=== PATIENT | female | born 1940 | race Native Hawaiian/Other Pacific Islander ===

== ENCOUNTER 2018-06-25 08:08 | Emergency (ER) | payer MEDICARE, OTHER ==
[2018-06-25 08:32] VITALS: RESP 18; BMI 27.7
[2018-06-25] MEDS ORDERED: Sodium Chloride 0.9% 500 ML IV ONE ×2 (08:55→09:14)
--- NOTE | 2018-06-25 09:01 | C.PDOC ---
Time Seen by Provider: 06/25/18 08:32 Chief Complaint (Nursing): Abdominal Pain Past Medical History Vital Signs: Last Vital Signs Temp 98.2 F 06/25/18 08:20 Pulse 90 06/25/18 08:20 Resp 18 06/25/18 08:20 BP 179/73 H 06/25/18 08:20 Pulse Ox 98 06/25/18 08:20 - Medical History PMH: HTN, Hypercholesterolemia - Social History Hx Alcohol Use: No Hx Substance Use: No - Immunization History Hx Tetanus Toxoid Vaccination: No Hx Influenza Vaccination: Yes Hx Pneumococcal Vaccination: Yes ED Course And Treatment O2 Sat by Pulse Oximetry: 98 Disposition - Disposition
--- NOTE | 2018-06-25 09:02 | C.PDOC ---
History Of Present Illness 77 year old female presents to the ED complaining of abdominal pain for one week. Associated symptoms include urinary frequency, diarrhea, generalized weakness, coughing and chest pain. She denies any nausea, vomiting, dysuria, hematuria, melena, or any other symptoms. She reports she came back from the [facility] one week ago. Time Seen by Provider: 06/25/18 08:32 Chief Complaint (Nursing): Abdominal Pain History Per: Patient History/Exam Limitations: no limitations Onset/Duration Of Symptoms: Days Current Symptoms Are (Timing): Still Present Context: Travel Location Of Pain/Discomfort: Diffuse Radiation Of Pain To:: None Past Medical History Reviewed: Historical Data, Nursing Documentation, Vital Signs Vital Signs: Last Vital Signs Temp 98.0 F 06/25/18 10:49 Pulse 84 06/25/18 12:49 Resp 18 06/25/18 12:49 BP 134/72 06/25/18 12:49 Pulse Ox 99 06/25/18 12:49 - Medical History PMH: HTN, Hypercholesterolemia Surgical History: No Surg Hx Family History: States: No Known Family Hx - Social History Hx Alcohol Use: No Hx Substance Use: No - Immunization History Hx Tetanus Toxoid Vaccination: No Hx Influenza Vaccination: Yes Hx Pneumococcal Vaccination: Yes Review Of Systems Except As Marked, All Systems Reviewed And Found Negative. Constitutional: Positive for: Weakness. Negative for: Fever, Chills Cardiovascular: Positive for: Chest Pain Respiratory: Positive for: Cough. Negative for: Shortness of Breath Gastrointestinal: Positive for: Abdominal Pain, Diarrhea. Negative for: Nausea , Vomiting, Melena Genitourinary: Positive for: Frequency. Negative for: Dysuria, Hematuria Physical Exam - Physical Exam Appears: Non-toxic, No Acute Distress Skin: Warm, Dry Head: Atraumatic, Normacephalic Eye(s): bilateral: Normal Inspection Nose: Normal Oral Mucosa: Moist Neck: Supple Chest: Symmetrical Cardiovascular: Rhythm Regular, No Murmur Respiratory: Normal Breath Sounds, No Rales, No Wheezing Gastrointestinal/Abdominal: Soft, No Tenderness, No Guarding, No Rebound Extremity: Normal ROM Neurological/Psych: Oriented x3, Normal Speech Gait: Steady ED Course And Treatment - Laboratory Results Result Diagrams: 06/25/18 09:10 06/25/18 09:10 ECG: Interpreted By Me, Viewed By Me ECG Rhythm: Sinus Rhythm ECG Interpretation: No Acute Changes Interpretation Of ECG: Normal ST/T waves. Normal axis Rate From EC O2 Sat by Pulse Oximetry: 98 (RA) - Other Rad CXR X-Ray: Viewed By Me, Read By Radiologist Interpretation: Accession No. : [id number]. Patient Name / ID : EMMA PASCUAL / [id number]. Exam Date : 06/25/2018 09:01:50 ( Approved ). Study Comment : Sex / Age : F / 77Y. Creator : Redd Drummond MD. Dictator : Redd Drummond MD. Youth Specialist : Underliner : Redd Drummond MD. Approver2 : Report Date : 06/25/2018 10:42:21. My Comment : . Chest x- ray single frontal view. History: Epigastric. Comparison: None available. Findings. Biapical pleural thickening with upper lobe granulomatous changes. Venous congestion. Right hilar prominence. Left basilar airspace opacity with small left pleural effusion. Tortuous ectatic aorta. Calcification at the aortic knob. Degenerative changes in the spine and shoulders. Impression: Biapical pleural thickening with upper lobe granulomatous changes. Venous congestion. Right hilar prominence. Left basilar airspace opacity with small left pleural effusion. Tortuous ectatic aorta. Calcification at the aortic knob. - CT Scan/US CT Abd/Pel Other Rad Studies (CT/US): Read By Radiologist, Radiology Report Reviewed CT/US Interpretation: Accession No. : [id number]. Patient Name / ID : EMMA PASCUAL / [id number]. Exam Date : 06/25/2018 10:35:37 ( Approved ). Study Comment : Sex / Age : F / 77Y. Creator : Umm Ortega. Dictator : Greg Sahni MD. Youth Specialist : Underliner : Greg Sahni MD. Approver2 : Report Date : 06/25/2018 10:49:57. My Comment : . Date of service: 06/25/2018. PROCEDURE: CT Abdomen and Pelvis with contrast. HISTORY : epigastric/mid abd pain, diarrhea, r/o colitis. COMPARISON: None. TECHNIQUE: Contrast dose: 100 mL Visipaque 320. Axial and reformatted coronal and sagittal CT images of the abdomen and pelvis were obtained after IV contrast administration. Radiation dose: Total exam DLP = 392.35 mGy-cm. This CT exam was performed using one or more of the following dose reduction techniques: Automated exposure control, adjustment of the mA and/or kV according to patient size, and/or use of iterative reconstruction technique. FINDINGS: LOWER THORAX: UnremarkableSmall ground-glass opacities noted at the lower lungs nonspecific. Small cystic formation noted at the anterior aspect of the right middle lobe. The heart is mildly enlarged. . LIVER: Unremarkable. No gross lesion or ductal dilatation. GALLBLADDER AND BILE DUCTS: Unremarkable. PANCREAS: Unremarkable. No gross lesion or ductal dilatation. SPLEEN: Unremarkable. ADRENALS: Unremarkable. No mass. KIDNEYS AND URETERS: Unremarkable. No hydronephrosis. No solid mass. VASCULATURE: Unremarkable. No aortic aneurysm. BOWEL: Mildly dilated small bowel loops demonstrate mild wall thickening. Mild large bowel wall thickening is also noted. Findings suspicious for enteritis and colitis. No evidence of bowel obstruction. APPENDIX: No evidence of appendicitis. PERITONEUM: Unremarkable. No free fluid. No free air. LYMPH NODES: There are [id number] enlarged periaortic and retroperitoneal lymphadenopathy. The largest conglomerate lymphadenopathy seen to the left of the aorta measures 3.1 centimeter image 41 series 2. BLADDER: Slightly low position of the bladder is noted suggestive of mild cystocele. REPRODUCTIVE: The uterus and adnexa are unremarkable. There is a pessary in the lower pelvis. BONES: No acute fracture. OTHER FINDINGS: None. IMPRESSION: Findings suggestive of mild enteritis and colitis. No evidence of bowel obstruction or pneumatosis. No evidence of cholecystitis pancreatitis or appendicitis. Etjx-le-xbnjzhdo retroperitoneal and para-aortic lymphadenopathy of uncertain etiology. The possibility of occult neoplasm is not totally excluded. Medical Decision Making Medical Decision Making: Orders: - EKG - Lab work - Blood work - Protonix 40mg IVP - Zofran 4mg IVP - IV fluids On re-exam, the patient reports improvement of symptoms. Abdomen is soft, non- tender and tolerating PO well. Lungs are CTA, and heart is RRR. Follow up with the medical doctor within 1-2 days. return if worsened. Disposition - Disposition Referrals: Tonie Llamas MD [Staff Provider] - Disposition: HOME/ ROUTINE Disposition Time: 12:38 Condition: IMPROVED Additional Instructions: Follow up with the medica doctor/clinic within 1-2 days. Return if worsened. Instructions: Diarrhea and Traveler's Diarrhea, Adult (DC) Forms: [employer] (Luxembourgish) - Clinical Impression Clinical Impression: Colitis, Diarrhea - PA / LABORER/KEY MAN / Resident Statement MD/DO has reviewed & agrees with the documentation as recorded. - Scribe Statement The provider has reviewed the documentation as recorded by the Scribe Irasema Paul All medical record entries made by the Patrickibjuve were at my direction and personally dictated by me. I have reviewed the chart and agree that the record accurately reflects my personal performance of the history, physical exam, medical decision making, and the department course for this patient. I have also personally directed, reviewed, and agree with the discharge instructions and disposition.
[2018-06-25 09:16] LABS: BASO % 0.3 % (0.0-2.0); EOS # 0.1 K/uL (0.0-0.7); HEMOGLOBIN 13.9 g/dL (11.0-16.0); LYMPH # 2.2 K/uL (1.0-4.3); LYMPH % 21.5 % (20.0-40.0); MEAN CELL VOLUME 94.3 fL (81.0-99.0); MEAN CORPUSCULAR HEMOGLOBIN 32.1 pg (27.0-31.0); MEAN PLATELET VOLUME 6.6 fL (7.2-11.7); MONO # 1.1 K/uL (0.0-0.8); MONO % 10.5 % (0.0-10.0); NEUT # 6.9 K/uL (1.8-7.0); NEUT % 66.7 % (50.0-75.0); RBC 4.33 Mil/uL (3.80-5.20); RED CELL DISTRIBUTION WIDTH 13.8 % (11.5-14.5); WHITE BLOOD COUNT 10.4 K/uL (4.8-10.8)
[2018-06-25 09:26] LABS: ALB/GLOB RATIO 1.6 (1.0-2.1); ALBUMIN 4.3 g/dL (3.5-5.0); ALT/SGPT 52 U/L (9-52); AST/SGOT 21 U/L (14-36); BLOOD UREA NITROGEN 9 mg/dL (7-17); CALCIUM 8.6 mg/dl (8.6-10.4); GFR AFRICAN-AMERICAN > 60; GFR NON-AFRICAN AMERICAN > 60; LIPASE 104 U/L (23-300)
[2018-06-25] MEDS ORDERED: Iodixanol 320 MG/ML 100 ML BOTTLE IV ONE (10:22)
--- NOTE | 2018-06-25 10:43 | RAD ---
Chest x-ray single frontal view History: Epigastric. Comparison: None available. Findings Biapical pleural thickening with upper lobe granulomatous changes. Venous congestion. Right hilar prominence. Left basilar airspace opacity with small left pleural effusion. Tortuous ectatic aorta. Calcification at the aortic knob. Degenerative changes in the spine and shoulders. Impression: Biapical pleural thickening with upper lobe granulomatous changes. Venous congestion. Right hilar prominence. Left basilar airspace opacity with small left pleural effusion. Tortuous ectatic aorta. Calcification at the aortic knob.
[2018-06-25 10:50] VITALS: TEMP 98
--- NOTE | 2018-06-25 11:29 | CT ---
Date of service: 06/25/2018 PROCEDURE: CT Abdomen and Pelvis with contrast HISTORY: epigastric/mid abd pain, diarrhea, r/o colitis COMPARISON: None. TECHNIQUE: Contrast dose: 100 mL Visipaque 320. Axial and reformatted coronal and sagittal CT images of the abdomen and pelvis were obtained after IV contrast administration. Radiation dose: Total exam DLP = 392.35 mGy-cm. This CT exam was performed using one or more of the following dose reduction techniques: Automated exposure control, adjustment of the mA and/or kV according to patient size, and/or use of iterative reconstruction technique. FINDINGS: LOWER THORAX: UnremarkableSmall ground-glass opacities noted at the lower lungs nonspecific. Small cystic formation noted at the anterior aspect of the right middle lobe. The heart is mildly enlarged. . LIVER: Unremarkable. No gross lesion or ductal dilatation. GALLBLADDER AND BILE DUCTS: Unremarkable. PANCREAS: Unremarkable. No gross lesion or ductal dilatation. SPLEEN: Unremarkable. ADRENALS: Unremarkable. No mass. KIDNEYS AND URETERS: Unremarkable. No hydronephrosis. No solid mass. VASCULATURE: Unremarkable. No aortic aneurysm. BOWEL: Mildly dilated small bowel loops demonstrate mild wall thickening. Mild large bowel wall thickening is also noted. Findings suspicious for enteritis and colitis. No evidence of bowel obstruction. APPENDIX: No evidence of appendicitis. PERITONEUM: Unremarkable. No free fluid. No free air. LYMPH NODES: There are zjtnqx-tl-avtfbukcvw enlarged periaortic and retroperitoneal lymphadenopathy. The largest conglomerate lymphadenopathy seen to the left of the aorta measures 3.1 centimeter image 41 series 2. BLADDER: Slightly low position of the bladder is noted suggestive of mild cystocele. REPRODUCTIVE: The uterus and adnexa are unremarkable. There is a pessary in the lower pelvis. BONES: No acute fracture. OTHER FINDINGS: None. IMPRESSION: Findings suggestive of mild enteritis and colitis. No evidence of bowel obstruction or pneumatosis. No evidence of cholecystitis pancreatitis or appendicitis. Brng-ur-afnjbkdm retroperitoneal and para-aortic lymphadenopathy of uncertain etiology. The possibility of occult neoplasm is not totally excluded.
[2018-06-25 12:50] VITALS: BP 134/72; PULSE 84
--- NOTE | 2018-06-26 12:43 | CARD ---
APPROVED REPORT Date of service: 06/25/2018 EKG Measurement Heart [id number] <Conclusion> Normal sinus rhythm Normal ECG
[2018-06-28 21:39] VITALS: O2SAT 98
== END 2018-06-25 12:50 | disposition home or self-care (01) ==
LOC: C.ER 08:08
DX: K52.9 Noninfective gastroenteritis and colitis, unspecified (principal); R19.7 Diarrhea, unspecified; E78.00 Pure hypercholesterolemia, unspecified; I10 Essential (primary) hypertension
CPT/HCPCS: 71045; 74177; 80053; 82948; 83690; 84484; 85025; 93005; 96374; 96375; 99284; C9113; J2405; J7040; Q9967

== ENCOUNTER 2018-07-02 06:54 | Day surgery (SDC) | payer MEDICARE, OTHER ==
[2018-06-28 11:20] VITALS: BMI 26.9
[2018-07-02] MEDS ORDERED: Propofol 10 mg/ml Inj (20 ML) ONE (08:00)
--- NOTE | 2018-07-02 08:03 | CP.SDSHP ---
Same Day Surgery H & P - History Proposed Procedure: EGD Pre-Op Diagnosis: epigastric pain. heartburn - Previous Medical/Surgical History Cardiac: Hypertension, Other (hyperlipidemia) Endocrine/Metabolic: Diabetes Previous Surgical History: Bladder suspension/pessary(?). Cataracts, bilat. Eye lift - Allergies Allergies: Allergies No Known Allergies Allergy (Verified 07/02/18 07:37) - Physical Exam Vital Signs: Vital Signs 07/02/18 07:10 Temperature 97.8 F Pulse Rate 73 Respiratory 19 Rate Blood Pressure 144/58 L O2 Sat by Pulse 99 Oximetry Mental Status: Alert & Oriented x3 Neuro: WNL Heart: WNL Lungs: WNL GI: WNL - Impression Impression: epigastric pain'. heartburn Pt. Evaluated Today:Candidate for Anesthesia & Procedure: Yes - Date & Time Date: 07/02/18 Time: 08:03 Short Stay Discharge - Short Stay Discharge Admitting Diagnosis/Reason for Visit: EPIGASTRIC PAIN / HEARTBURN Disposition: HOME/ ROUTINE
[2018-07-02] MEDS ORDERED: Pantoprazole 40 mg EC Tab PO ONE (08:15)
[2018-07-02 08:29] VITALS: TEMP 98.4
[2018-07-02 09:18] VITALS: RESP 12; O2SAT 99
[2018-07-02 09:21] VITALS: BP 129/64; PULSE 89
== END 2018-07-02 09:20 | disposition home or self-care (01) ==
LOC: C.ENDO 06:54
PROVIDERS: ATTEND Internal Medicine Gastroenterology
DX: K21.0 Gastro-esophageal reflux disease with esophagitis (principal); K44.9 Diaphragmatic hernia without obstruction or gangrene; K29.60 Other gastritis without bleeding
CPT/HCPCS: 43239; 82948; 88305; 88312; 88313; 88342; J2001; J2704

== ENCOUNTER 2018-08-25 14:59 | Emergency (ER) | payer MEDICARE, OTHER ==
[2018-08-25 15:04] VITALS: BMI 27.7
[2018-08-25 15:08] VITALS: BP 158/80; PULSE 89; RESP 20; TEMP 99.3; O2SAT 98
--- NOTE | 2018-08-25 15:48 | C.PDOC ---
Time Seen by Provider: 08/25/18 15:35 Chief Complaint (Nursing): Female Genitourinary PMH - Medical History PMH: HEENT Problems, GI Disorders, MS Disorders Denies: Neuro Disorder, Resp Disorders - Immunization History Hx Tetanus Toxoid Vaccination: No Hx Influenza Vaccination: Yes Hx Pneumococcal Vaccination: Yes ED Course And Treatment O2 Sat by Pulse Oximetry: 98 Disposition - Disposition
--- NOTE | 2018-08-25 16:10 | C.PDOC ---
History Of Present Illness 78 years old female presents to ED with multiple complaints. Patient complaints of vaginal discharge associated with bad odor that began 1 week ago. Patient reports she has Pessary and is pending MD evaluation for 09/13 "To get it cleaned out" but states she cannot wait until then. Denies itchiness, rash, or UTI symptoms. Patient also complaints of exacerbating chronic right greater than left hip and bilateral knee pain "for a long time." Patient reports symptoms worsen with walking but now states limited relief with Tylenol. She also reports she was previously diagnosed with arthritis. Denies trauma. MULT COMPLAINTS. CO VAG DC W BAD ODOR X 1 WEEK. PS HAS PESSARY, PENDING MD EVAL 09/13 "TO GET IT CLEANED OUT" BUT STATES CANNOT WAIT UNTIL THEN. NO ITCH, RASH, UTI SX. ALSO CO EXAC CHRONIC R>L HIP, B/L KNEE PAIN "FOR A LONG TIME". WORSE W WALKING, PREV DX ARTHRITIS. NOW LIMITED RELIEF W TYLNOL. NO TRAUMA. EXAM NONTOX NAD EXT AROM WO DIFF NONTEND NO SWELL; ATRAUM DEFERRED REMAINDER NEG Time Seen by Provider: 08/25/18 15:35 Chief Complaint (Nursing): Female Genitourinary History Per: Patient History/Exam Limitations: no limitations Onset/Duration Of Symptoms: Days (7) Current Symptoms Are (Timing): Still Present Recent travel outside of the [place]: No Past Medical History Reviewed: Historical Data, Nursing Documentation, Vital Signs Vital Signs: Last Vital Signs Temp 99.3 F 08/25/18 15:05 Pulse 89 08/25/18 15:05 Resp 20 08/25/18 15:05 BP 158/80 H 08/25/18 15:05 Pulse Ox 98 08/25/18 15:05 - Medical History PMH: Arthritis, HTN, Hypercholesterolemia, Osteoporosis Surgical History: Endoscopy Family History: States: No Known Family Hx - Social History Hx Alcohol Use: No Hx Substance Use: No - Immunization History Hx Tetanus Toxoid Vaccination: No Hx Influenza Vaccination: Yes Hx Pneumococcal Vaccination: Yes Review Of Systems Except As Marked, All Systems Reviewed And Found Negative. Genitourinary: Positive for: Vaginal Discharge (With bad odor ) Musculoskeletal: Positive for: Other (Chronic right greater than left hip pain and bilateral knee pain ) Physical Exam - Physical Exam Appears: Non-toxic, No Acute Distress Skin: Normal Color, Warm, Dry, No Rash Head: Atraumatic, Normacephalic Eye(s): bilateral: Normal Inspection, PERRL, EOMI Oral Mucosa: Moist Neck: Supple Chest: Symmetrical, No Tenderness Cardiovascular: Rhythm Regular, No Murmur Respiratory: Normal Breath Sounds, No Rales, No Rhonchi, No Wheezing Gastrointestinal/Abdominal: Bowel Sounds (Active ), Soft, No Tenderness Pelvic: Other ( DEFERRED) Extremity: Normal ROM (Active with no difficulties ), No Tenderness, No Swelling Extremity: Bilateral: Atraumatic, Normal Color And Temperature, Normal ROM Pulses: Left Radial: Normal, Right Radial: Normal Neurological/Psych: Oriented x3, Normal Speech Gait: Steady ED Course And Treatment O2 Sat by Pulse Oximetry: 98 (RA) Pulse Ox Interpretation: Normal Medical Decision Making Medical Decision Making: Plan: * Toradol * UA * Urine Culture Disposition Counseled Patient/Family Regarding: Diagnosis, Need For Followup, Rx Given - Disposition Referrals: YOUR,UROLOGIST/OBGYN [Other] Disposition: HOME/ ROUTINE Disposition Time: 16:10 Condition: IMPROVED Prescriptions: Ibuprofen [Motrin] 400 mg PO QID #30 tab Metronidazole [Metrogel-Vaginal] 1 ea VG QPM #5 gel Instructions: Bacterial Vaginosis (DC), Osteoarthritis (DC) Forms: [employer] (Macedonian) - Clinical Impression Clinical Impression: Vaginosis, Chronic arthralgias of knees and hips - Scribe Statement The provider has reviewed the documentation as recorded by the Scribjuve Junior All medical record entries made by the Scribe were at my direction and personally dictated by me. I have reviewed the chart and agree that the record accurately reflects my personal performance of the history, physical exam, medical decision making, and the department course for this patient. I have also personally directed, reviewed, and agree with the discharge instructions and disposition.
[2018-08-25 16:37] LABS: SQUAMOUS EPITHIAL 11 /hpf (0-5); URINE BACTERIA MANY (<OCC); URINE BILIRUBIN NEGATIVE (NEGATIVE); URINE BLOOD 1+ (NEGATIVE); URINE CLARITY Hazy (Clear); URINE COLOR Yellow (YELLOW); URINE GLUCOSE (UA) NORMAL (Normal); URINE LEUKOCYTE ESTERASE 3+ Leu/uL (Negative); URINE PROTEIN NEGATIVE (NEGATIVE); URINE UROBILINOGEN NORMAL mg/dL (0.2-1.0)
== END 2018-08-25 17:31 | disposition home or self-care (01) ==
LOC: C.ER 14:59
DX: N76.0 Acute vaginitis (principal); G89.29 Other chronic pain; M25.562 Pain in left knee; M25.561 Pain in right knee; M25.551 Pain in right hip
CPT/HCPCS: 81001; 87086; 96372; 99284; J1885

== ENCOUNTER 2018-09-25 18:30 | Inpatient (IN) | payer MEDICARE, OTHER ==
[2018-09-25 18:31] VITALS: BMI 27.7
--- NOTE | 2018-09-25 19:29 | C.PDOC ---
History Of Present Illness 78 year old female is sent to the ED from her PMD's office. Patient c/o lower back pain for the past few months, that has been getting progressively worse. Patient states pain radiated down her hip to her legs. Patient has a retroper itoneal lymphadenopathy that she has been getting monitored. Patient state she had a CT scan done yesterday with no results back yet. Patient went to see Dr. Llamas, had blood work done which showed her calcium was 12.9. Patient was sent to the ED for admission under Dr. Jimenez Hensley service. Patient denies fever, chills, nausea, vomit, abdominal pain, bowel incontinence, saddle anesthesia, injury, fall, trauma, weakness, numbness. Time Seen by Provider: 09/25/18 18:57 Chief Complaint (Nursing): Abnormal Labs History Per: Patient History/Exam Limitations: no limitations Onset/Duration Of Symptoms: Days Current Symptoms Are (Timing): Still Present Severity: Mild Reports Recently: Treated By A Physician (Dr. Llamas) Recent travel outside of the [place]: No Additional History Per: Patient Past Medical History Reviewed: Historical Data, Nursing Documentation, Vital Signs Vital Signs: Last Vital Signs Temp 97.8 F 09/25/18 18:42 Pulse 100 H 09/25/18 18:42 Resp 18 09/25/18 18:42 BP 151/75 H 09/25/18 18:42 Pulse Ox 96 09/25/18 18:42 - Medical History PMH: Arthritis, HTN, Hypercholesterolemia, Osteoporosis Denies: Chronic Kidney Disease Surgical History: Endoscopy Family History: States: Unknown Family Hx - Social History Hx Alcohol Use: No Hx Substance Use: No - Immunization History Hx Tetanus Toxoid Vaccination: No Hx Influenza Vaccination: Yes Hx Pneumococcal Vaccination: Yes Review Of Systems Constitutional: Negative for: Fever, Chills Cardiovascular: Negative for: Chest Pain Respiratory: Negative for: Shortness of Breath Gastrointestinal: Negative for: Nausea, Vomiting, Abdominal Pain, Diarrhea Genitourinary: Negative for: Incontinence Musculoskeletal: Positive for: Back Pain, Leg Pain Skin: Negative for: Rash Neurological: Negative for: Weakness, Numbness Physical Exam - Physical Exam Appears: Non-toxic, No Acute Distress Skin: Normal Color, Warm, Dry Head: Atraumatic, Normacephalic Eye(s): bilateral: Normal Inspection Neck: Normal ROM, Supple Chest: Symmetrical Cardiovascular: Rhythm Regular (tachycardic) Respiratory: Normal Breath Sounds, No Rales, No Rhonchi, No Wheezing Gastrointestinal/Abdominal: Soft, No Tenderness, No Guarding, No Rebound Back: No Vertebral Tenderness Extremity: Normal ROM, No Tenderness, No Swelling Neurological/Psych: Oriented x3, Normal Speech, Normal Cognition Gait: Steady ED Course And Treatment - Laboratory Results Result Diagrams: 09/25/18 19:39 09/25/18 19:39 Lab Interpretation: Abnormal (Ca 10.8,) ECG: Interpreted By Me ECG Rhythm: Sinus Rhythm (with inferior infarct ? age) ECG Interpretation: No Acute Changes O2 Sat by Pulse Oximetry: 96 (ON RA) Pulse Ox Interpretation: Normal - Physician Consult Information Time Consulting Physician Contacted: 20:56 Outcome Of Conversation: Case discussed with Dr Hensley and Dr Fisher. Patient to be admitted for evaluation of hypercalcemia in pt with retroperitoneal lymphadenopathy Medical Decision Making Medical Decision Making: Plan: * EKG * Labs * UA Disposition - Disposition Disposition: HOSPITALIZED Disposition Time: 20:57 Condition: STABLE - POA Present On Arrival: None - Clinical Impression Clinical Impression: Hypercalcemia, Retroperitoneal lymphadenopathy - Scribe Statement The provider has reviewed the documentation as recorded by the Scribe Prosper Mireles All medical record entries made by the Scribe were at my direction and personally dictated by me. I have reviewed the chart and agree that the record accurately reflects my personal performance of the history, physical exam, medical decision making, and the department course for this patient. I have also personally directed, reviewed, and agree with the discharge instructions and disposition.
[2018-09-25 19:46] LABS: BASO % 0.3 % (0.0-2.0); EOS # 0.1 K/uL (0.0-0.7); EOS % 0.7 % (0.0-4.0); HEMOGLOBIN 11.2 g/dL (11.0-16.0); LYMPH # 1.4 K/uL (1.0-4.3); MEAN CELL VOLUME 89.6 fL (81.0-99.0); MEAN CORPUSCULAR HEMOGLOBIN 30.1 pg (27.0-31.0); MEAN CORPUSCULAR HGB CONC 33.6 g/dL (33.0-37.0); MEAN PLATELET VOLUME 6.4 fL (7.2-11.7); MONO # 0.9 K/uL (0.0-0.8); MONO % 11.7 % (0.0-10.0); NEUT # 5.5 K/uL (1.8-7.0); NEUT % 69.3 % (50.0-75.0); NRBC % 0.1 % (0.0-2.0); RBC 3.72 Mil/uL (3.80-5.20); RED CELL DISTRIBUTION WIDTH 14.2 % (11.5-14.5); WHITE BLOOD COUNT 7.9 K/uL (4.8-10.8)
[2018-09-25 19:51] LABS: SQUAMOUS EPITHIAL 1 /hpf (0-5); URINE BACTERIA OCC (<OCC); URINE BILIRUBIN NEGATIVE (NEGATIVE); URINE BLOOD NEGATIVE (NEGATIVE); URINE CLARITY Clear (Clear); URINE COLOR Yellow (YELLOW); URINE GLUCOSE (UA) 1+ mg/dL (Normal); URINE LEUKOCYTE ESTERASE 1+ Leu/uL (Negative); URINE PROTEIN NEGATIVE (NEGATIVE); URINE UROBILINOGEN NORMAL mg/dL (0.2-1.0)
[2018-09-25 20:14] LABS: ALB/GLOB RATIO 1.1 (1.0-2.1); ALBUMIN 4.2 g/dL (3.5-5.0); ALT/SGPT 23 U/L (9-52); AST/SGOT 73 U/L (14-36); BLOOD UREA NITROGEN 17 mg/dL (7-17); CALCIUM 10.8 mg/dl (8.6-10.4); GFR NON-AFRICAN AMERICAN > 60
[2018-09-25] MEDS: Oxycodone/Acetaminophen 5/325 mg Tab PO PRN (21:33)
[2018-09-25] MEDS: Lactated Ringer's 1,000 ML IV SCH (21:33)
[2018-09-25] MEDS ORDERED: Oxycodone/Acetaminophen 5/325 mg Tab ONE (21:33)
[2018-09-25] MEDS ORDERED: (Novolin R) Insulin Human Regular 100 units/ml vial SC SCH (22:00)
[2018-09-25] MEDS ORDERED: INSULIN DETEMIR 50 UNIT SC SCH (22:00)
[2018-09-25 22:20] VITALS: RESP 20
[2018-09-25] MEDS: (Novolin R) Insulin Human Regular 100 units/ml vial SC SCH (22:28)
[2018-09-26] MEDS: Oxycodone/Acetaminophen 5/325 mg Tab PO PRN ×3 (04:07→16:20)
[2018-09-26] MEDS: Lactated Ringer's 1,000 ML IV SCH ×2 (07:15→21:43)
[2018-09-26] MEDS: (Novolin R) Insulin Human Regular 100 units/ml vial SC SCH ×4 (08:23→21:43)
[2018-09-26] MEDS: Multiple Vitamins Tab PO SCH (10:42)
[2018-09-26] MEDS: Enoxaparin 30 mg Syringe SC SCH (10:42)
--- NOTE | 2018-09-26 12:41 | CP.PCM.CON ---
<Nabor Olson - Last Filed: 09/26/18 22:18> History of Present Illness - History of Present Illness History of Present Illness: Nephrology consult note for Dr. Singh's service - Ivette Olson PGY3 HPI: Patient is a 78yo female with past medical history of diabetes mellitus type 2, hypertension, hyperlipidemia, arthritis that presents c/o low back pain and hip pain since March 2018 that has been progressively worsening over the last several months. She reports that the pain is predominantly in the R. Hip area and has made it more difficult to perform ADL's and she has been taking tramadol for pain relief. She also reported having had an elevated serum calcium level which per chart was documented as 12.9 as an outpatient. Furthermore, she also endorsed having had a CT abdomen/pelvis which was notable for retropertioneal and para-aortic lymphadenopathy for which she has been monitored by her PMD. Presently, she denies chest pain, palpitations, SOB, abdominal pain, nausea, vomiting, fever, chills, cough, focal weakness, numbness, tingling. Nephrology consulted for evaluation of hypercalcemia. 12point ROS as per above otherwise negative PMH: as stated above PSH: pessary placement, eye lift Allergies: NKDA Social Hx: denies tobacco, alcohol and illicit drug use Family Hx: reviewed, non-contributory Past Patient History - Infectious Disease Hx of Infectious Diseases: None - Past Medical History & Family History Past Medical History?: Yes - Past Social History Smoking Status: Never Smoked - CARDIAC Hx Hypercholesterolemia: Yes Hx Hypertension: Yes - PULMONARY Hx Respiratory Disorders: No - NEUROLOGICAL Hx Neurological Disorder: No - HEENT Hx HEENT Problems: Yes Hx Cataracts: Yes (BILATERAL CATARACT SURGERY) Hx Deafness: (ZUNI ( bilateral)) - RENAL Hx Chronic Kidney Disease: No - ENDOCRINE/METABOLIC Hx Endocrine Disorders: Yes Hx Diabetes Mellitus Type 2: Yes - HEMATOLOGICAL/ONCOLOGICAL Hx Blood Disorders: No - INTEGUMENTARY Hx Dermatological Problems: No - MUSCULOSKELETAL/RHEUMATOLOGICAL Hx Falls: No - GASTROINTESTINAL Hx Gastrointestinal Disorders: Yes Other/Comment: HEARTBURN, EPIGASTRIC PAIN - GENITOURINARY/GYNECOLOGICAL Hx Genitourinary Disorders: No - PSYCHIATRIC Hx Substance Use: No - SURGICAL HISTORY Hx Surgeries: Yes Hx Cataract Extraction: Yes (BILATERAL) Hx Eye Surgery: Yes (BILATERAL EYELIDS) - ANESTHESIA Hx Anesthesia: Yes Hx Anesthesia Reactions: No Hx Malignant Hyperthermia: No Meds Allergies/Adverse Reactions: Allergies Allergy/AdvReac Type Severity Reaction Status Date / Time No Known Allergies Allergy Verified 08/25/18 15:03 - Medications Medications: Current Medications Diltiazem HCl (Cardizem Cd) 120 mg PO DAILY [facility] Enoxaparin Sodium (Lovenox) 40 mg SC DAILY [facility] Last Admin: 09/26/18 10:42 Dose: 40 mg Famotidine (Pepcid) 20 mg PO BID [facility] Last Admin: 09/26/18 12:07 Dose: 20 mg Home Med (Insulin Detemir [Levemir]) 50 units SC [facility] Last Admin: 09/25/18 22:34 Dose: Not Given Lactated Ringer's (Lactated Ringer's) 1,000 mls @ 100 mls/hr IV .Q10H [facility] Last Admin: 09/26/18 07:15 Dose: 100 mls/hr Insulin Human Regular (Novolin R) 0 unit SC [facility]; Protocol Last Admin: 09/26/18 12:13 Dose: 3 units Lisinopril (Zestril) 40 mg PO DAILY [facility] Last Admin: 09/26/18 10:42 Dose: 40 mg Metformin HCl (Glucophage) 500 mg PO BID [facility] Last Admin: 09/26/18 10:42 Dose: 500 mg Multivitamins (Hexavitamin) 1 tab PO DAILY [facility] Last Admin: 09/26/18 10:42 Dose: 1 tab Oxycodone/Acetaminophen (Percocet 5/325 Mg Tab) 1 tab PO Q4H PRN PRN Reason: Pain, moderate (4-7) Stop: 09/28/18 21:10 Last Admin: 09/26/18 12:00 Dose: 1 tab Pneumococcal Polyvalent Vaccine (Pneumovax 23 Vaccine) 0.5 ml IM .ONCE ONE Stop: 09/28/18 10:01 Rosuvastatin Calcium (Crestor) 40 mg PO [facility] Last Admin: 09/25/18 22:23 Dose: 40 mg Physical Exam - Constitutional Appears: No Acute Distress - Head Exam Head Exam: ATRAUMATIC, NORMAL INSPECTION, NORMOCEPHALIC - Eye Exam Eye Exam: EOMI Pupil Exam: PERRL - ENT Exam ENT Exam: Mucous Membranes Moist - Neck Exam Neck exam: Negative for: Lymphadenopathy, Tenderness, Thyromegaly - Respiratory Exam Respiratory Exam: absent: Rales, Rhonchi, Wheezes - Cardiovascular Exam Cardiovascular Exam: +S1, +S2. absent: Clicks, Gallop, Rubs - GI/Abdominal Exam GI & Abdominal Exam: Soft. absent: Distended, Firm, Guarding, Rebound, Rigid, Tenderness - Extremities Exam Extremities exam: Positive for: normal inspection. Negative for: calf tenderness, pedal edema - Neurological Exam Neurological exam: Alert, CN II-XII Intact, Oriented x3 - Psychiatric Exam Psychiatric exam: Normal Affect, Normal Mood - Skin Skin Exam: Dry, Intact, Normal Color, Warm Results - Vital Signs Recent Vital Signs: Last Vital Signs Temp 101.3 F H 09/26/18 12:10 Pulse 105 H 09/26/18 08:15 Resp 20 09/26/18 08:15 BP 167/61 H 09/26/18 08:15 Pulse Ox 98 09/26/18 08:15 - Labs Result Diagrams: 09/25/18 19:39 09/25/18 19:39 Labs: Laboratory Results - last 24 hr 09/25/18 09/25/18 09/25/18 19:39 19:39 19:39 WBC 7.9 RBC 3.72 L Hgb 11.2 D Hct 33.3 L MCV 89.6 D MCH 30.1 MCHC 33.6 RDW 14.2 Plt Count 466 H MPV 6.4 L Neut % (Auto) 69.3 Lymph % (Auto) 18.0 L Snyder % (Auto) 11.7 H Eos % (Auto) 0.7 Baso % (Auto) 0.3 Neut # (Auto) 5.5 Lymph # (Auto) 1.4 Snyder # (Auto) 0.9 H Eos # (Auto) 0.1 Baso # (Auto) 0.0 Sodium 135 Potassium 4.3 Chloride 97 L Carbon Dioxide 28 Anion Gap 14 BUN 17 Creatinine 0.9 Est GFR ( Amer) > 60 Est GFR (Non-Af Amer) > 60 POC Glucose (mg/dL) Random Glucose 148 H Calcium 10.8 H Phosphorus 4.0 Magnesium 2.1 Total Bilirubin 0.5 AST 73 H D ALT 23 Alkaline Phosphatase 144 H D Total Protein 7.9 Albumin 4.2 Globulin 3.7 Albumin/Globulin Ratio 1.1 Urine Color Yellow Urine Clarity Clear Urine pH 7.0 Ur Specific [place] 1.008 Urine Protein Negative Urine Glucose (UA) 1+ Urine Ketones Negative Urine Blood Negative Urine Nitrate Negative Urine Bilirubin Negative Urine Urobilinogen Normal Ur Leukocyte Esterase 1+ H Urine WBC (Auto) 10 H Urine RBC (Auto) 1 Ur Squamous Epith Cells 1 Urine Bacteria Occ H Ur Random Sodium Urine Calcium 09/25/18 09/25/18 09/25/18 21:28 21:28 22:25 WBC RBC Hgb Hct MCV MCH MCHC RDW Plt Count MPV Neut % (Auto) Lymph % (Auto) Snyder % (Auto) Eos % (Auto) Baso % (Auto) Neut # (Auto) Lymph # (Auto) Snyder # (Auto) Eos # (Auto) Baso # (Auto) Sodium Potassium Chloride Carbon Dioxide Anion Gap BUN Creatinine Est GFR ( Amer) Est GFR (Non-Af Amer) POC Glucose (mg/dL) 172 H Random Glucose Calcium Phosphorus Magnesium Total Bilirubin AST ALT Alkaline Phosphatase Total Protein Albumin Globulin Albumin/Globulin Ratio Urine Color Urine Clarity Urine pH Ur Specific [place] Urine Protein Urine Glucose (UA) Urine Ketones Urine Blood Urine Nitrate Urine Bilirubin Urine Urobilinogen Ur Leukocyte Esterase Urine WBC (Auto) Urine RBC (Auto) Ur Squamous Epith Cells Urine Bacteria Ur Random Sodium 49 Urine Calcium 12.3 09/26/18 09/26/18 07:14 11:06 WBC RBC Hgb Hct MCV MCH MCHC RDW Plt Count MPV Neut % (Auto) Lymph % (Auto) Snyder % (Auto) Eos % (Auto) Baso % (Auto) Neut # (Auto) Lymph # (Auto) Snyder # (Auto) Eos # (Auto) Baso # (Auto) Sodium Potassium Chloride Carbon Dioxide Anion Gap BUN Creatinine Est GFR ( Amer) Est GFR (Non-Af Amer) POC Glucose (mg/dL) 143 H 251 H Random Glucose Calcium Phosphorus Magnesium Total Bilirubin AST ALT Alkaline Phosphatase Total Protein Albumin Globulin Albumin/Globulin Ratio Urine Color Urine Clarity Urine pH Ur Specific [place] Urine Protein Urine Glucose (UA) Urine Ketones Urine Blood Urine Nitrate Urine Bilirubin Urine Urobilinogen Ur Leukocyte Esterase Urine WBC (Auto) Urine RBC (Auto) Ur Squamous Epith Cells Urine Bacteria Ur Random Sodium Urine Calcium Assessment & Plan - Assessment and Plan (Free Text) Plan: 78yo female with history of arthritis, DM type 2, HTN, HLD presents with intract able back pain in the setting of hypercalcemia. Nephrology consulted for evaluation of hypercalcemia. 1. Low back pain 2. Hypercalcemia 3. DM type 2 4. Hypertension 5. Hyperlipidemia 6. Arthritis -PTH and SPEP presently pending -Ordered PTHrp, 1,25 OH VitD and 25OH Vit D levels, light chain assay, protein/creatinine ratio -Presently on lactated ringers with improvement in serum calcium level (10.8) from outpatient report -Continue with lisinopril for hypertension -Continue with coreg for hyperlipidemia -Further recommendations based on clinical course and results of the above additional testing Patient seen and case discussed/reviewed with attending, Dr. Singh <Maximino Singh - Last Filed: 09/27/18 07:33> Meds - Medications Medications: Current Medications Acetaminophen (Tylenol 325mg Tab) 650 mg PO Q6 PRN PRN Reason: Fever >100.4 F Last Admin: 09/26/18 14:23 Dose: 650 mg Diltiazem HCl (Cardizem Cd) 120 mg PO DAILY [facility] Enoxaparin Sodium (Lovenox) 40 mg SC DAILY [facility] Last Admin: 09/26/18 10:42 Dose: 40 mg Famotidine (Pepcid) 20 mg PO BID [facility] Last Admin: 09/26/18 17:38 Dose: 20 mg Lactated Ringer's (Lactated Ringer's) 1,000 mls @ 100 mls/hr IV .Q10H [facility] Last Admin: 09/27/18 03:15 Dose: Not Given Piperacillin Sod/Tazobactam Sod (Zosyn 3.375 Gm Iv Premix) 3.375 gm in 50 mls @ 100 mls/hr IVPB Q6H [facility]; Protocol Last Admin: 09/27/18 02:01 Dose: 100 mls/hr Insulin Detemir (Levemir) 50 unit SC HS [facility] Last Admin: 09/26/18 21:42 Dose: 50 units Insulin Human Regular (Novolin R) 0 unit SC ACHS [facility]; Protocol Last Admin: 09/26/18 21:43 Dose: Not Given Lisinopril (Zestril) 40 mg PO DAILY [facility] Last Admin: 09/26/18 10:42 Dose: 40 mg Metformin HCl (Glucophage) 500 mg PO BID [facility] Last Admin: 09/26/18 17:38 Dose: 500 mg Multivitamins (Hexavitamin) 1 tab PO DAILY [facility] Last Admin: 09/26/18 10:42 Dose: 1 tab Oxycodone/Acetaminophen (Percocet 5/325 Mg Tab) 1 tab PO Q4H PRN PRN Reason: Pain, moderate (4-7) Stop: 09/28/18 21:10 Last Admin: 09/26/18 16:20 Dose: 1 tab Pneumococcal Polyvalent Vaccine (Pneumovax 23 Vaccine) 0.5 ml IM .ONCE ONE Stop: 09/28/18 10:01 Rosuvastatin Calcium (Crestor) 40 mg PO HS [facility] Last Admin: 09/26/18 21:40 Dose: 40 mg Results - Vital Signs Recent Vital Signs: Last Vital Signs Temp 98.2 F 09/27/18 00:00 Pulse 89 09/27/18 00:00 Resp 20 09/27/18 00:00 BP 145/77 09/27/18 00:00 Pulse Ox 98 09/27/18 00:00 - Labs Result Diagrams: 09/25/18 19:39 09/25/18 19:39 Labs: Laboratory Results - last 24 hr 09/26/18 09/26/18 09/26/18 07:14 11:06 17:26 POC Glucose (mg/dL) 143 H 251 H 25-OH Vitamin D Total Hepatitis A IgM Ab Hep Bs Antigen Hep B Core IgM Ab HIV 1&2 Antibody Screen Negative 09/27/18 09/27/18 06:18 06:18 POC Glucose (mg/dL) 25-OH Vitamin D Total 54.1 Hepatitis A IgM Ab Negative Hep Bs Antigen Negative Hep B Core IgM Ab Negative HIV 1&2 Antibody Screen Attending/Attestation - Attestation I have personally seen and examined this patient.: Yes I have fully participated in the care of the patient.: Yes I have reviewed all pertinent clinical information: Yes Notes (Text): Patient seen and examined; I agree with the resident's note as above with the following additions/edits: 78 yo F w/ pmh of htn, dm, recent onset of low back and hip pain, sent to ED due to hypercalcemia seen on outpatient labs; Patient reports above pain only started a few months ago; found to have significant retroperitoneal and para-aortic lymphadenopathy on CT done 3 months ago (also showed mild enteritis/colitis); Patient otherwise complains of dry mouth and increased urination lately (was also treated for UTI last month); Labs on admission show only mild hypocalcemia (10.8); however, given previous imaging findings and new onset of back/hip pain, needs more extensive workup to assess for cause of hypercalcemia; BP controlled on lisinopril and amlodipine (changed to cardizem by PMD), continue same; -PTH, PTHrP, 25-OH vit D levels ordered; will need to check 1,25 -OH vit D level also (looking for granulomatous disease, lymphoma) -SPEP/immunofixation and serum free light chains ordered (looking for evidence of paraproteinemia); -Agree with gentle IVF; Thank you for this referral, we will continue to f/u closely.
--- NOTE | 2018-09-26 12:45 | CARD ---
APPROVED REPORT Date of service: 09/25/2018 EKG Measurement Heart [id number] <Conclusion> Normal sinus rhythm Inferior infarct, age undetermined Abnormal ECG
--- NOTE | 2018-09-26 13:57 | RAD ---
Date of service: 09/26/2018 HISTORY: fever COMPARISON: No prior. TECHNIQUE: Chest PA and lateral FINDINGS: LUNGS: No active pulmonary disease. PLEURA: No significant pleural effusion identified. No pneumothorax apparent. CARDIOVASCULAR: Aortic calcification Normal cardiac size. No pulmonary vascular congestion. OSSEOUS STRUCTURES: No significant abnormalities. VISUALIZED UPPER ABDOMEN: Normal. OTHER FINDINGS: None. IMPRESSION: No active disease.
[2018-09-26] MEDS: Piperacill/Tazo 3.375gm in Dex 3.375 GM/50 ML BAG IVPB SCH ×2 (14:29→19:18)
--- NOTE | 2018-09-26 15:17 | CP.PCM.CON ---
History of Present Illness - History of Present Illness History of Present Illness: 78 year old female with hx of lower back pain for the past few months, was found to have retroperitoneal lymphadenopathy Recently had a repeat CT scan and was found to have severe hypercalcemia Was sent to the ER for this - Medical History PMH: Arthritis, HTN, Hypercholesterolemia, Osteoporosis Denies: Chronic Kidney Disease Surgical History: Endoscopy Family History: States: Unknown Family Hx Review of Systems - Review of Systems All systems: reviewed and no additional remarkable complaints except - Constitutional Constitutional: As Per HPI - EENT Eyes: absent: As Per HPI, Blind Spots, Blurred Vision, Change in Vision, Decreased Night Vision, Diplopia, Discharge, Dry Eye, Exophthalmos, Floaters, Irritation, Itchy Eyes, Loss of Peripheral Vision, Pain, Photophobia, Requires Corrective Lenses, Sees Flashes, Spots in Vision, Tunnel Vision, Other Visual Disturbances, Loss of Vision, Other Ears: absent: As Per HPI, Decreased Hearing, Ear Discharge, Ear Pain, Tinnitus, Abnormal Hearing, Disequilibrium, Dizziness, Other Nose/Mouth/Throat: absent: As Per HPI, Epistaxis, Nasal Congestion, Nasal Discharge, Nasal Obstruction, Nasal Trauma, Nose Pain, Post Nasal Drip, Sinus Pain, Sinus Pressure, Bleeding Gums, Change in Voice, Dental Pain, Dry Mouth, Dysphagia, Halitosis, Hoarsness, Lip Swelling, Mouth Lesions, Mouth Pain, Odynophagia, Sore Throat, Throat Swelling, Tongue Swelling, Facial Pain, Neck Pain, Neck Mass, Other - Breasts Breasts: absent: As Per HPI, Change in Shape, Mass, Pain, Nipple Discharge, Nipple Inversion, Skin Changes, Swelling, Other - Cardiovascular Cardiovascular: absent: As Per HPI, Acrocyanosis, Chest Pain, Chest Pain at Rest, Chest Pain with Activity, Claudication, Diaphoresis, Dyspnea, Dyspnea on Exertion, Edema, Irregular Heart Rhythm, Pain Radiating to Arm/Neck/Jaw, Leg Edema, Leg Ulcers, Lightheadedness, Orthopnea, Palpitations, Paroxysmal Nocturnal Dyspnea, Pedal Edema, Radiating Pain, Rapid Heart Rate, Slow Heart R ate, Syncope, Other - Respiratory Respiratory: absent: As Per HPI, Cough, Dyspnea, Hemoptysis, Dyspnea on Exertion, Wheezing, Snoring, Stridor, Pain on Inspiration, Chest Congestion, Excessive Mucous Production, Change in Mucous Color, Pain with Coughing, Other - Gastrointestinal Gastrointestinal: absent: As Per HPI, Abdominal Pain, Belching, Bloating, Change in Bowel Habits, Change in Stool Character, Coffee Ground Emesis, Constipation, Cramping, Diarrhea, Dyspepsia, Dysphagia, Early Satiety, Excessive Flatus, Fecal Incontinence, Heartburn, Hematemesis, Hematochezia, Loose Stools, Melena, Nausea, Odynophagia, Temesmus, Vomiting, Other - Reproductive: Female Reproductive:Female: absent: As Per HPI, Amenorrhea, Amenorrhea/ Control, Currently Menstual, Cycle <21 Days, Cycle >35 Days, Cycle Variable, Menses 1-7 Days, Menses >/= 8 Days, Menses Variable, Cycle > 4 Weeks Between, No Menses for 6 Months, Heavy Menses, Light Menses, Normal Menses, Spotting Between Cycles, S/P Hysterectomy, Menopausal, Post Menopausal, Premenarche, Abnormal Vaginal Bleeding, Dysmenorrhea, Dyspareunia, Genital Lesions, Genital Pruritis, Pelvic Pain, Prolapse Symptoms, Sexual Dysfunction, Vaginal Discharge, Vaginal Dryness, Vaginal Odor, Vaginal Pruritis, Other - Menstruation Menstruation: absent: As Per HPI, Amenorrhea, Amenorrhea/ Control, Currently Menstual, Cycle <21 Days, Cycle >35 Days, Cycle Variable, Menses 1-7 Days, Menses >/= 8 Days, Menses Variable, Cycle > 4 Weeks Between, No Menses for 6 Months, Heavy Menses, Light Menses, Normal Menses, Spotting Between Cycles, S/P Hysterectomy, Menopausal, Post Menopausal, Premenarche, Abnormal Vaginal Bleeding, Dysmenorrhea, Other - Musculoskeletal Musculoskeletal: absent: As Per HPI, Abnormal Gait, Arthralgias, Atrophy, Back Pain, Deformity, Joint Swelling, Limited Range of Motion, Loss of Height, Muscle Cramps, Muscle Weakness, Myalgias, Neck Pain, Numbness, Radiating Pain into Limb, Stiffness, Tingling, Other - Integumentary Integumentary: absent: As Per HPI, Acne, Alopecia, Bleeding Lesions, Change in Hair, Change in Nails, Change in Pigmentation, Changing Lesions, Dry Skin, Erythema, Furuncle, Hirsutism, Lesions, New Lesions, Non-Healing Lesions, Photosensitivity, Pruritus, Rash, Skin Pain, Skin Ulcer, Sores, Striae, Swelling, Unusual Bruising, Wounds, Jaundice, Other - Neurological Neurological: absent: As Per HPI, Abnormal Gait, Abnormal Hearing, Abnormal Movements, Abnormal Speech, Behavioral Changes, Burning Sensations, Confusion, Convulsions, Disequilibrium, Dizziness, Numbness, Focal Weakness, Frequent Falls, Headaches, Lack of Coordination, Loss of Vision, Memory Loss, Paresthesias, Radicular Pain, Restless Legs, Sensory Deficit, Syncope, Tingling, Tremor, Vertigo, Weakness, Other Visual Disturbances, Other Past Patient History - Infectious Disease Hx of Infectious Diseases: None - Past Medical History & Family History Past Medical History?: Yes - Past Social History Smoking Status: Never Smoked - CARDIAC Hx Hypercholesterolemia: Yes Hx Hypertension: Yes - PULMONARY Hx Respiratory Disorders: No - NEUROLOGICAL Hx Neurological Disorder: No - HEENT Hx HEENT Problems: Yes Hx Cataracts: Yes (BILATERAL CATARACT SURGERY) Hx Deafness: ([place] ( bilateral)) - RENAL Hx Chronic Kidney Disease: No - ENDOCRINE/METABOLIC Hx Diabetes Mellitus Type 2: Yes - HEMATOLOGICAL/ONCOLOGICAL Hx Blood Disorders: No - INTEGUMENTARY Hx Dermatological Problems: No - MUSCULOSKELETAL/RHEUMATOLOGICAL Hx Falls: No - GASTROINTESTINAL Hx Gastrointestinal Disorders: Yes Other/Comment: HEARTBURN, EPIGASTRIC PAIN - GENITOURINARY/GYNECOLOGICAL Hx Genitourinary Disorders: No - PSYCHIATRIC Hx Substance Use: No - SURGICAL HISTORY Hx Surgeries: Yes Hx Cataract Extraction: Yes (BILATERAL) Hx Eye Surgery: Yes (BILATERAL EYELIDS) - ANESTHESIA Hx Anesthesia: Yes Hx Anesthesia Reactions: No Hx Malignant Hyperthermia: No Meds Allergies/Adverse Reactions: Allergies Allergy/AdvReac Type Severity Reaction Status Date / Time No Known Allergies Allergy Verified 08/25/18 15:03 - Medications Medications: Current Medications Acetaminophen (Tylenol 325mg Tab) 650 mg PO Q6 PRN PRN Reason: Fever >100.4 F Last Admin: 09/26/18 14:23 Dose: 650 mg Diltiazem HCl (Cardizem Cd) 120 mg PO DAILY [facility] Enoxaparin Sodium (Lovenox) 40 mg SC DAILY [facility] Last Admin: 09/26/18 10:42 Dose: 40 mg Famotidine (Pepcid) 20 mg PO BID [facility] Last Admin: 09/26/18 12:07 Dose: 20 mg Home Med (Insulin Detemir [Levemir]) [address] [facility] Last Admin: 09/25/18 22:34 Dose: Not Given Lactated Ringer's (Lactated Ringer's) 1,000 mls @ 100 mls/hr IV .Q10H [facility] Last Admin: 09/26/18 07:15 Dose: 100 mls/hr Piperacillin Sod/Tazobactam Sod (Zosyn 3.375 Gm Iv Premix) 3.375 gm in 50 mls @ 100 mls/hr IVPB Q6H [facility]; Protocol Last Admin: 09/26/18 14:29 Dose: 100 mls/hr Insulin Human Regular (Novolin R) 0 unit SC ACHS [facility]; Protocol Last Admin: 09/26/18 12:13 Dose: 3 units Lisinopril (Zestril) 40 mg PO DAILY [facility] Last Admin: 09/26/18 10:42 Dose: 40 mg Metformin HCl (Glucophage) 500 mg PO BID [facility] Last Admin: 09/26/18 10:42 Dose: 500 mg Multivitamins (Hexavitamin) 1 tab PO DAILY [facility] Last Admin: 09/26/18 10:42 Dose: 1 tab Oxycodone/Acetaminophen (Percocet 5/325 Mg Tab) 1 tab PO Q4H PRN PRN Reason: Pain, moderate (4-7) Stop: 09/28/18 21:10 Last Admin: 09/26/18 12:00 Dose: 1 tab Pneumococcal Polyvalent Vaccine (Pneumovax 23 Vaccine) 0.5 ml IM .ONCE ONE Stop: 09/28/18 10:01 Rosuvastatin Calcium (Crestor) [address] [facility] Last Admin: 09/25/18 22:23 Dose: 40 mg Physical Exam - Constitutional Appears: Non-toxic, No Acute Distress, Chronically Ill - Head Exam Head Exam: NORMOCEPHALIC - Eye Exam Eye Exam: PERRL Pupil Exam: NORMAL ACCOMODATION - ENT Exam ENT Exam: Mucous Membranes Dry - Neck Exam Neck exam: Positive for: Full Rom - Respiratory Exam Respiratory Exam: Decreased Breath Sounds - Cardiovascular Exam Cardiovascular Exam: REGULAR RHYTHM - GI/Abdominal Exam GI & Abdominal Exam: Diminished Bowel Sounds, Distended - Rectal Exam Rectal Exam: Deferred - Exam Exam: NORMAL INSPECTION - Back Exam Back exam: NORMAL INSPECTION - Neurological Exam Neurological exam: Alert, CN II-XII Intact, Oriented x3 - Psychiatric Exam Psychiatric exam: Depressed - Skin Skin Exam: Dry Results - Vital Signs Recent Vital Signs: Last Vital Signs Temp 101.2 F H 09/26/18 14:23 Pulse 105 H 09/26/18 08:15 Resp 20 09/26/18 08:15 BP 167/61 H 09/26/18 08:15 Pulse Ox 98 09/26/18 08:15 - Labs Result Diagrams: 09/28/18 07:01 09/28/18 07:01 Labs: Laboratory Results - last 24 hr 09/25/18 09/25/18 09/25/18 19:39 19:39 19:39 WBC 7.9 RBC 3.72 L Hgb 11.2 D Hct 33.3 L MCV 89.6 D MCH 30.1 MCHC 33.6 RDW 14.2 Plt Count 466 H MPV 6.4 L Neut % (Auto) 69.3 Lymph % (Auto) 18.0 L [place] % (Auto) 11.7 H Eos % (Auto) 0.7 Baso % (Auto) 0.3 Neut # (Auto) 5.5 Lymph # (Auto) 1.4 [place] # (Auto) 0.9 H Eos # (Auto) 0.1 Baso # (Auto) 0.0 Sodium 135 Potassium 4.3 Chloride 97 L Carbon Dioxide 28 Anion Gap 14 BUN 17 Creatinine 0.9 Est GFR ( Amer) > 60 Est GFR (Non-Af Amer) > 60 POC Glucose (mg/dL) Random Glucose 148 H Calcium 10.8 H Phosphorus 4.0 Magnesium 2.1 Total Bilirubin 0.5 AST 73 H D ALT 23 Alkaline Phosphatase 144 H D Total Protein 7.9 Albumin 4.2 Globulin 3.7 Albumin/Globulin Ratio 1.1 Urine Color Yellow Urine Clarity Clear Urine pH 7.0 Ur Specific [place] 1.008 Urine Protein Negative Urine Glucose (UA) 1+ Urine Ketones Negative Urine Blood Negative Urine Nitrate Negative Urine Bilirubin Negative Urine Urobilinogen Normal Ur Leukocyte Esterase 1+ H Urine WBC (Auto) 10 H Urine RBC (Auto) 1 Ur Squamous Epith Cells 1 Urine Bacteria Occ H Ur Random Sodium Urine Calcium 09/25/18 09/25/18 09/25/18 21:28 21:28 22:25 WBC RBC Hgb Hct MCV MCH MCHC RDW Plt Count MPV Neut % (Auto) Lymph % (Auto) [place] % (Auto) Eos % (Auto) Baso % (Auto) Neut # (Auto) Lymph # (Auto) [place] # (Auto) Eos # (Auto) Baso # (Auto) Sodium Potassium Chloride Carbon Dioxide Anion Gap BUN Creatinine Est GFR ( Amer) Est GFR (Non-Af Amer) POC Glucose (mg/dL) 172 H Random Glucose Calcium Phosphorus Magnesium Total Bilirubin AST ALT Alkaline Phosphatase Total Protein Albumin Globulin Albumin/Globulin Ratio Urine Color Urine Clarity Urine pH Ur Specific [place] Urine Protein Urine Glucose (UA) Urine Ketones Urine Blood Urine Nitrate Urine Bilirubin Urine Urobilinogen Ur Leukocyte Esterase Urine WBC (Auto) Urine RBC (Auto) Ur Squamous Epith Cells Urine Bacteria Ur Random Sodium 49 Urine Calcium 12.3 09/26/18 09/26/18 07:14 11:06 WBC RBC Hgb Hct MCV MCH MCHC RDW Plt Count MPV Neut % (Auto) Lymph % (Auto) [place] % (Auto) Eos % (Auto) Baso % (Auto) Neut # (Auto) Lymph # (Auto) [place] # (Auto) Eos # (Auto) Baso # (Auto) Sodium Potassium Chloride Carbon Dioxide Anion Gap BUN Creatinine Est GFR ( Amer) Est GFR (Non-Af Amer) POC Glucose (mg/dL) 143 H 251 H Random Glucose Calcium Phosphorus Magnesium Total Bilirubin AST ALT Alkaline Phosphatase Total Protein Albumin Globulin Albumin/Globulin Ratio Urine Color Urine Clarity Urine pH Ur Specific [place] Urine Protein Urine Glucose (UA) Urine Ketones Urine Blood Urine Nitrate Urine Bilirubin Urine Urobilinogen Ur Leukocyte Esterase Urine WBC (Auto) Urine RBC (Auto) Ur Squamous Epith Cells Urine Bacteria Ur Random Sodium Urine Calcium Assessment & Plan (1) Hypercalcemia Status: Acute (2) Retroperitoneal lymphadenopathy Status: Acute (3) Chronic arthralgias of knees and hips Status: Acute (4) Colitis Status: Acute (5) Diarrhea Status: Acute - Assessment and Plan (Free Text) Assessment: r/o malignancy- myeloma r/o infection- TB less likely r/o Parathyroid adenoma Plan: IV rx in progress cultures sent
--- NOTE | 2018-09-26 16:10 | CP.PCM.CON ---
History of Present Illness - History of Present Illness History of Present Illness: Patient is a 78 y/o female with PMHx of DM, HTN, hypercholesteremia, arthritis, and osteoporosis, who presented to the ED on 09/25/18 with complaint of hip pain, diarrhea, and fatigue after taking one dose of Tramadol in the morn ing. She states she has been having low back pain and hip pain for a year now, and she follows up with Dr. Sheehan, a heme/oncologist for history of retroperitoneal lymphadenopathy. In the ED, bloodwork showed Ca of 10.8. Currently, patient has right low back pain and b/l LE pain. Denies chest pain, shortness of breath, coughing, headache, n/v/d, and blurry vision. pulmonary consulted to rule out mediastinal lymphadenopathy. PMD: Dr. Muriel Arriaga/Onc: Dr. Aaron Sheehan PMHx: DM, HTN, hypercholesteremia, arthritis, osteoporosis PSHx: b/l cataract surgery, endoscopy (2016), pessary insertion (March 2018) Meds: Lisinopril, Amlodipine 10mg, Metoprolol 50mg, metformin 500mg, Lovastatin 40mg, Humalog, MV, Alendronate FHx: mother-DM ( at 77 y/o due to pneumonia), father-HTN ( in 80's) Allergies: denies, NKDA Social: denies tobacco, alcohol, and drug use; lives with daughter in [place]. -CT abdomen/pelvis (06/25/18): [id number] enlarged periaortic and retroperitoneal lympadenopathy. The largest conglomerate lymphadenopathy seen to the left of aorta measures 3.1cm. Past Patient History - Infectious Disease Hx of Infectious Diseases: None - Past Medical History & Family History Past Medical History?: Yes - Past Social History Smoking Status: Never Smoked - CARDIAC Hx Hypercholesterolemia: Yes Hx Hypertension: Yes - PULMONARY Hx Respiratory Disorders: No - NEUROLOGICAL Hx Neurological Disorder: No - HEENT Hx HEENT Problems: Yes Hx Cataracts: Yes (BILATERAL CATARACT SURGERY) Hx Deafness: ([place] ( bilateral)) - RENAL Hx Chronic Kidney Disease: No - ENDOCRINE/METABOLIC Hx Diabetes Mellitus Type 2: Yes - HEMATOLOGICAL/ONCOLOGICAL Hx Blood Disorders: No - INTEGUMENTARY Hx Dermatological Problems: No - MUSCULOSKELETAL/RHEUMATOLOGICAL Hx Falls: No - GASTROINTESTINAL Hx Gastrointestinal Disorders: Yes Other/Comment: HEARTBURN, EPIGASTRIC PAIN - GENITOURINARY/GYNECOLOGICAL Hx Genitourinary Disorders: No - PSYCHIATRIC Hx Substance Use: No - SURGICAL HISTORY Hx Surgeries: Yes Hx Cataract Extraction: Yes (BILATERAL) Hx Eye Surgery: Yes (BILATERAL EYELIDS) - ANESTHESIA Hx Anesthesia: Yes Hx Anesthesia Reactions: No Hx Malignant Hyperthermia: No Meds Allergies/Adverse Reactions: Allergies Allergy/AdvReac Type Severity Reaction Status Date / Time No Known Allergies Allergy Verified 08/25/18 15:03 - Medications Medications: Current Medications Acetaminophen (Tylenol 325mg Tab) 650 mg PO Q6 PRN PRN Reason: Fever >100.4 F Last Admin: 09/26/18 14:23 Dose: 650 mg Diltiazem HCl (Cardizem Cd) 120 mg PO DAILY [facility] Enoxaparin Sodium (Lovenox) 40 mg SC DAILY [facility] Last Admin: 09/26/18 10:42 Dose: 40 mg Famotidine (Pepcid) 20 mg PO BID [facility] Last Admin: 09/26/18 12:07 Dose: 20 mg Home Med (Insulin Detemir [Levemir]) 50 units SC HS [facility] Last Admin: 09/25/18 22:34 Dose: Not Given Lactated Ringer's (Lactated Ringer's) 1,000 mls @ 100 mls/hr IV .Q10H [facility] Last Admin: 09/26/18 07:15 Dose: 100 mls/hr Piperacillin Sod/Tazobactam Sod (Zosyn 3.375 Gm Iv Premix) 3.375 gm in 50 mls @ 100 mls/hr IVPB Q6H [facility]; Protocol Last Admin: 09/26/18 14:29 Dose: 100 mls/hr Insulin Human Regular (Novolin R) 0 unit SC ACHS [facility]; Protocol Last Admin: 09/26/18 12:13 Dose: 3 units Lisinopril (Zestril) 40 mg PO DAILY [facility] Last Admin: 09/26/18 10:42 Dose: 40 mg Metformin HCl (Glucophage) 500 mg PO BID [facility] Last Admin: 09/26/18 10:42 Dose: 500 mg Multivitamins (Hexavitamin) 1 tab PO DAILY [facility] Last Admin: 09/26/18 10:42 Dose: 1 tab Oxycodone/Acetaminophen (Percocet 5/325 Mg Tab) 1 tab PO Q4H PRN PRN Reason: Pain, moderate (4-7) Stop: 09/28/18 21:10 Last Admin: 09/26/18 12:00 Dose: 1 tab Pneumococcal Polyvalent Vaccine (Pneumovax 23 Vaccine) 0.5 ml IM .ONCE ONE Stop: 09/28/18 10:01 Rosuvastatin Calcium (Crestor) 40 mg PO HS [facility] Last Admin: 09/25/18 22:23 Dose: 40 mg Physical Exam - Head Exam Head Exam: ATRAUMATIC, NORMOCEPHALIC - ENT Exam ENT Exam: Mucous Membranes Moist - Respiratory Exam Respiratory Exam: Clear to Auscultation Bilateral - Cardiovascular Exam Cardiovascular Exam: REGULAR RHYTHM Results - Vital Signs Recent Vital Signs: Last Vital Signs Temp 98.3 F 09/26/18 15:25 Pulse 105 H 09/26/18 08:15 Resp 20 09/26/18 08:15 BP 167/61 H 09/26/18 08:15 Pulse Ox 98 09/26/18 08:15 - Labs Result Diagrams: 09/29/18 06:19 09/29/18 06:19 Labs: Laboratory Results - last 24 hr 09/25/18 09/25/18 09/25/18 19:39 19:39 19:39 WBC 7.9 RBC 3.72 L Hgb 11.2 D Hct 33.3 L MCV 89.6 D MCH 30.1 MCHC 33.6 RDW 14.2 Plt Count 466 H MPV 6.4 L Neut % (Auto) 69.3 Lymph % (Auto) 18.0 L [place] % (Auto) 11.7 H Eos % (Auto) 0.7 Baso % (Auto) 0.3 Neut # (Auto) 5.5 Lymph # (Auto) 1.4 [place] # (Auto) 0.9 H Eos # (Auto) 0.1 Baso # (Auto) 0.0 Sodium 135 Potassium 4.3 Chloride 97 L Carbon Dioxide 28 Anion Gap 14 BUN 17 Creatinine 0.9 Est GFR ( Amer) > 60 Est GFR (Non-Af Amer) > 60 POC Glucose (mg/dL) Random Glucose 148 H Calcium 10.8 H Phosphorus 4.0 Magnesium 2.1 Total Bilirubin 0.5 AST 73 H D ALT 23 Alkaline Phosphatase 144 H D Total Protein 7.9 Albumin 4.2 Globulin 3.7 Albumin/Globulin Ratio 1.1 Urine Color Yellow Urine Clarity Clear Urine pH 7.0 Ur Specific [place] 1.008 Urine Protein Negative Urine Glucose (UA) 1+ Urine Ketones Negative Urine Blood Negative Urine Nitrate Negative Urine Bilirubin Negative Urine Urobilinogen Normal Ur Leukocyte Esterase 1+ H Urine WBC (Auto) 10 H Urine RBC (Auto) 1 Ur Squamous Epith Cells 1 Urine Bacteria Occ H Ur Random Sodium Urine Calcium 09/25/18 09/25/18 09/25/18 21:28 21:28 22:25 WBC RBC Hgb Hct MCV MCH MCHC RDW Plt Count MPV Neut % (Auto) Lymph % (Auto) [place] % (Auto) Eos % (Auto) Baso % (Auto) Neut # (Auto) Lymph # (Auto) [place] # (Auto) Eos # (Auto) Baso # (Auto) Sodium Potassium Chloride Carbon Dioxide Anion Gap BUN Creatinine Est GFR ( Amer) Est GFR (Non-Af Amer) POC Glucose (mg/dL) 172 H Random Glucose Calcium Phosphorus Magnesium Total Bilirubin AST ALT Alkaline Phosphatase Total Protein Albumin Globulin Albumin/Globulin Ratio Urine Color Urine Clarity Urine pH Ur Specific [place] Urine Protein Urine Glucose (UA) Urine Ketones Urine Blood Urine Nitrate Urine Bilirubin Urine Urobilinogen Ur Leukocyte Esterase Urine WBC (Auto) Urine RBC (Auto) Ur Squamous Epith Cells Urine Bacteria Ur Random Sodium 49 Urine Calcium 12.3 09/26/18 09/26/18 07:14 11:06 WBC RBC Hgb Hct MCV MCH MCHC RDW Plt Count MPV Neut % (Auto) Lymph % (Auto) [place] % (Auto) Eos % (Auto) Baso % (Auto) Neut # (Auto) Lymph # (Auto) [place] # (Auto) Eos # (Auto) Baso # (Auto) Sodium Potassium Chloride Carbon Dioxide Anion Gap BUN Creatinine Est GFR ( Amer) Est GFR (Non-Af Amer) POC Glucose (mg/dL) 143 H 251 H Random Glucose Calcium Phosphorus Magnesium Total Bilirubin AST ALT Alkaline Phosphatase Total Protein Albumin Globulin Albumin/Globulin Ratio Urine Color Urine Clarity Urine pH Ur Specific [place] Urine Protein Urine Glucose (UA) Urine Ketones Urine Blood Urine Nitrate Urine Bilirubin Urine Urobilinogen Ur Leukocyte Esterase Urine WBC (Auto) Urine RBC (Auto) Ur Squamous Epith Cells Urine Bacteria Ur Random Sodium Urine Calcium Assessment & Plan (1) Hypercalcemia Status: Acute Comment: IV fluids. CAT scan of the chest to rule out mediastinal lymphadenopathy (2) Retroperitoneal lymphadenopathy Status: Acute
--- NOTE | 2018-09-26 21:27 | CP.PCM.HP ---
Past Patient History - Infectious Disease Hx of Infectious Diseases: None - Past Medical History & Family History Past Medical History?: Yes - Past Social History Smoking Status: Never Smoked - CARDIAC Hx Hypercholesterolemia: Yes Hx Hypertension: Yes - PULMONARY Hx Respiratory Disorders: No - NEUROLOGICAL Hx Neurological Disorder: No - HEENT Hx HEENT Problems: Yes Hx Cataracts: Yes (BILATERAL CATARACT SURGERY) Hx Deafness: ([place] ( bilateral)) - RENAL Hx Chronic Kidney Disease: No - ENDOCRINE/METABOLIC Hx Diabetes Mellitus Type 2: Yes - HEMATOLOGICAL/ONCOLOGICAL Hx Blood Disorders: No - INTEGUMENTARY Hx Dermatological Problems: No - MUSCULOSKELETAL/RHEUMATOLOGICAL Hx Falls: No - GASTROINTESTINAL Hx Gastrointestinal Disorders: Yes Other/Comment: HEARTBURN, EPIGASTRIC PAIN - GENITOURINARY/GYNECOLOGICAL Hx Genitourinary Disorders: No - PSYCHIATRIC Hx Substance Use: No - SURGICAL HISTORY Hx Surgeries: Yes Hx Cataract Extraction: Yes (BILATERAL) Hx Eye Surgery: Yes (BILATERAL EYELIDS) - ANESTHESIA Hx Anesthesia: Yes Hx Anesthesia Reactions: No Hx Malignant Hyperthermia: No Meds Allergies/Adverse Reactions: Allergies Allergy/AdvReac Type Severity Reaction Status Date / Time No Known Allergies Allergy Verified 08/25/18 15:03 Results - Vital Signs Recent Vital Signs: Last Vital Signs Temp 99 F 09/26/18 16:00 Pulse 93 H 09/26/18 16:00 Resp 20 09/26/18 16:00 BP 126/68 09/26/18 16:00 Pulse Ox 95 09/26/18 16:00 - Labs Result Diagrams: 09/25/18 19:39 09/25/18 19:39 Labs: Laboratory Results - last 24 hr 09/25/18 09/25/18 09/25/18 21:28 21:28 22:25 POC Glucose (mg/dL) 172 H Ur Random Sodium 49 Urine Calcium 12.3 HIV 1&2 Antibody Screen 09/26/18 09/26/18 09/26/18 07:14 11:06 17:26 POC Glucose (mg/dL) 143 H 251 H Ur Random Sodium Urine Calcium HIV 1&2 Antibody Screen Negative
[2018-09-26] MEDS: Insulin Detemir 100 units/ml Vial (Levemir) SC SCH (21:42)
--- NOTE | 2018-09-27 01:05 | HP ---
CHIEF COMPLAINT: Abnormal labs. HISTORY OF PRESENT ILLNESS: This is a 78-year-old Citizen Of [place] female who has a history of type 2 diabetes, hypertension, hyperlipidemia, osteoarthritis, and osteoporosis. The patient came into the emergency room because of chest pain, diarrhea, and fatigue. She has been taking tramadol. According to her, she has had no back pain and hip pain for one year. She sees Hematology/Oncology and gets . The patient was found to have hypercalcemia. The patient has low back pain, bilateral lower extremity pain. She denies any shortness of breath, dizziness, or fever. She denies any cough, sore throat, or runny nose. She denies any nausea, vomiting, or diarrhea. She denies any blurring of vision. She denies any fever or chills. She denies any rash. She denies any itchy eyes or itchy nose. She denies any history of polyuria, polydipsia, or polyphagia. She denies any history of hematuria or pyuria. PAST MEDICAL HISTORY: Type 2 diabetes, hypertension, hyperlipidemia, osteoarthritis, and osteoporosis. PAST SURGICAL HISTORY: Bilateral cataract surgery. CURRENT MEDICATIONS: Lisinopril, Norvasc, metoprolol, metformin, lovastatin, Humalog, multivitamin, Fosamax. FAMILY HISTORY: Mother at the age of 77 due to pneumonia; she had diabetes. Father had hypertension; he in his 80s. ALLERGIES: UNKNOWN ALLERGIES. SOCIAL HISTORY: She denies smoking. She lives with her daughter. PHYSICAL EXAMINATION: GENERAL: This is an elderly female who is not in any acute cardiopulmonary distress, VITAL SIGNS: Blood pressure 167/61, pulse 105, respiratory rate 18, and temperature 98.3. SKIN: Senile turgor. No bruises. No purpura. No petechiae. HEENT: Atraumatic, normocephalic. Negative pallor. Negative jaundice. Extraocular movements are intact. NECK: Supple. No JVD. No lymph node. No thyromegaly. No carotid bruits. CHEST WALL: Bilateral symmetrical expansion. No crackles. No rhonchi. CARDIOVASCULAR SYSTEM: PMI in the fifth intercostal space. S1 and S2. There is S4 positive. ABDOMEN: Soft and nontender. Bowel sounds are positive. No lymphadenopathy in the groin. PELVIC: Negative. RECTAL: Negative. EXTREMITIES: No clubbing, cyanosis, or edema. CENTRAL NERVOUS SYSTEM: Awake, alert, oriented x3. ASSESSMENT: 1. Hypercalcemia, etiology unclear. It could be primary hyperparathyroidism versus paraproteinemia in a patient with a history liver adenopathy. 2. Uncontrolled hypertension. 3. Fever. Etiology of fever is unclear. 4. Diabetes. It could be new-onset diabetes as the patient is not on any oral antidiabetic medication. PLAN: Admit. Detailed orders are written. Seen and examined. Ramsey Fisher MD
[2018-09-27] MEDS: Piperacill/Tazo 3.375gm in Dex 3.375 GM/50 ML BAG IVPB SCH ×4 (02:01→20:23)
[2018-09-27] MEDS: Lactated Ringer's 1,000 ML IV SCH ×4 (02:04→13:36)
[2018-09-27 07:11] LABS: HEPATITIS B SURFACE AG Negative (NEGATIVE)
[2018-09-27 07:17] LABS: HEPATITIS A IGM NEGATIVE (NEGATIVE); HEPATITIS B CORE AB NEGATIVE (NEGATIVE)
[2018-09-27] MEDS ORDERED: Dextrose 50% SYRINGE Inj (50 ml) IV PRN (07:26)
[2018-09-27] MEDS ORDERED: Glucagon Recombinant 1 mg Inj IM PRN (07:26)
[2018-09-27 07:29] LABS: HEPATITIS C ANTIBODY NEGATIVE (NEGATIVE)
[2018-09-27] MEDS: (Novolin R) Insulin Human Regular 100 units/ml vial SC SCH ×4 (07:49→21:29)
[2018-09-27] MEDS: Multiple Vitamins Tab PO SCH (09:48)
[2018-09-27] MEDS: Enoxaparin 30 mg Syringe SC SCH (09:51)
[2018-09-27] MEDS: diltiaZEM 120 mg/24 Hours CD Cap PO SCH (09:52)
--- NOTE | 2018-09-27 09:58 | CP.PCM.PN ---
<Nabor Olson - Last Filed: 09/27/18 12:45> Subjective - Date & Time of Evaluation Date of Evaluation: 09/27/18 Time of Evaluation: 09:52 - Subjective Subjective: Nephrology progress note for Dr. Singh's service - Ivette Olson PGY3 Patient seen and examined at bedside this morning. No acute overnight events or new complaints reported. Denies cp, palpitations, SOB. Objective - Vital Signs/Intake and Output Vital Signs (last 24 hours): Temp Pulse Resp BP Pulse Ox 98.1 F 102 H 20 153/64 H 96 09/27/18 07:52 09/27/18 07:52 09/27/18 07:52 09/27/18 07:52 09/27/18 07:52 Intake and Output: 09/27/18 09/27/18 06:59 18:59 Intake Total 1700 Balance 1700 - Medications Medications: Current Medications Acetaminophen (Tylenol 325mg Tab) 650 mg PO Q6 PRN PRN Reason: Fever >100.4 F Last Admin: 09/26/18 14:23 Dose: 650 mg Dextrose (Dextrose 50% Inj) 0 ml IV STAT PRN; Protocol PRN Reason: Hypoglycemia Protocol Dextrose (Glutose 15) 0 gm PO ONCE PRN; Protocol PRN Reason: Hypoglycemia Protocol Diltiazem HCl (Cardizem Cd) 120 mg PO DAILY [facility] Enoxaparin Sodium (Lovenox) 40 mg SC DAILY [facility] Last Admin: 09/26/18 10:42 Dose: 40 mg Famotidine (Pepcid) 20 mg PO BID [facility] Last Admin: 09/26/18 17:38 Dose: 20 mg Glucagon (Glucagen Diagnostic Kit) 0 mg IM STAT PRN; Protocol PRN Reason: Hypoglycemia Protocol Lactated Ringer's (Lactated Ringer's) 1,000 mls @ 100 mls/hr IV .Q10H [facility] Last Admin: 09/27/18 03:15 Dose: Not Given Piperacillin Sod/Tazobactam Sod (Zosyn 3.375 Gm Iv Premix) 3.375 gm in 50 mls @ 100 mls/hr IVPB Q6H [facility]; Protocol Last Admin: 09/27/18 08:23 Dose: 100 mls/hr Dextrose (Dextrose 5% In Water 1000 Ml) 1,000 mls @ 0 mls/hr IV .Q0M PRN; Protocol PRN Reason: Hypoglycemia Protocol Insulin Detemir (Levemir) 50 unit SC [facility] Last Admin: 09/26/18 21:42 Dose: 50 units Insulin Human Regular (Novolin R) 0 unit SC [facility]; Protocol Last Admin: 09/27/18 07:49 Dose: Not Given Lisinopril (Zestril) 40 mg PO DAILY [facility] Last Admin: 09/26/18 10:42 Dose: 40 mg Metformin HCl (Glucophage) 500 mg PO BID [facility] Last Admin: 09/26/18 17:38 Dose: 500 mg Metoclopramide HCl (Reglan) 10 mg IVP [facility] Multivitamins (Hexavitamin) 1 tab PO DAILY [facility] Last Admin: 09/26/18 10:42 Dose: 1 tab Ondansetron HCl (Zofran Inj) 4 mg IVP Q8H PRN PRN Reason: Nausea/Vomiting Pantoprazole Sodium (Protonix Inj) 40 mg IVP DAILY [facility] Pneumococcal Polyvalent Vaccine (Pneumovax 23 Vaccine) 0.5 ml IM .ONCE ONE Stop: 09/28/18 10:01 Rosuvastatin Calcium (Crestor) 40 mg PO [facility] Last Admin: 09/26/18 21:40 Dose: 40 mg - Labs Labs: 09/25/18 19:39 09/25/18 19:39 - Constitutional Appears: No Acute Distress - Head Exam Head Exam: ATRAUMATIC, NORMAL INSPECTION, NORMOCEPHALIC - Eye Exam Eye Exam: EOMI Pupil Exam: PERRL - ENT Exam ENT Exam: Mucous Membranes Moist - Neck Exam Neck Exam: Normal Inspection. absent: Lymphadenopathy, Tenderness, Thyromegaly - Respiratory Exam Respiratory Exam: absent: Rales, Rhonchi, Wheezes - Cardiovascular Exam Cardiovascular Exam: +S1, +S2. absent: Clicks, Gallop, Rubs - GI/Abdominal Exam GI & Abdominal Exam: Soft. absent: Distended, Firm, Guarding, Rigid, Tenderness, Rebound - Extremities Exam Extremities Exam: Normal Inspection. absent: Pedal Edema - Neurological Exam Neurological Exam: Alert, Awake, CN II-XII Intact, Oriented x3 - Psychiatric Exam Psychiatric exam: Normal Affect, Normal Mood - Skin Skin Exam: Dry, Intact, Normal Color, Warm Assessment and Plan - Assessment and Plan (Free Text) Plan: 78yo female with history of arthritis, DM type 2, HTN, HLD presents with intractable back pain in the setting of hypercalcemia. Nephrology consulted for evaluation of hypercalcemia. 1. Low back pain 2. Hypercalcemia 3. DM type 2 4. Hypertension 5. Hyperlipidemia 6. Arthritis -Labs on admission show only mild hypocalcemia (10.8); however, given previous imaging findings and new onset of back/hip pain, needs more extensive workup to assess for cause of hypercalcemia -SPEP/immunofixation and serum free light chains ordered (looking for evidence of paraproteinemia); -PTH, PTHrP, 25-OH vit D levels ordered; called lab to check 1,25 -OH vit D level also (looking for granulomatous disease, lymphoma) -Presently on lactated ringers with improvement in serum calcium level (10.8) from outpatient report -BP controlled on lisinopril and amlodipine (changed to cardizem by PMD) -Continue with coreg for hyperlipidemia -Further recommendations based on clinical course and results of the above additional testing -CT AP previously shown to have significant retroperitoneal and para-aortic lymphadenopathy Patient seen and case discussed/reviewed with attending, Dr. Singh <Maximino Singh - Last Filed: 09/28/18 08:02> Objective - Vital Signs/Intake and Output Vital Signs (last 24 hours): Temp Pulse Resp BP Pulse Ox 98.3 F 81 20 114/64 95 09/28/18 07:55 09/28/18 07:55 09/28/18 07:55 09/28/18 07:55 09/28/18 07:55 Intake and Output: 09/28/18 09/28/18 06:59 18:59 Intake Total 2310 Balance 2310 - Medications Medications: Current Medications Acetaminophen (Tylenol 325mg Tab) 650 mg PO Q6 PRN PRN Reason: Fever >100.4 F Last Admin: 09/28/18 06:27 Dose: 650 mg Acetaminophen (Tylenol 325mg Tab) 650 mg PO Q6 PRN PRN Reason: Pain, moderate (4-7) Last Admin: 09/27/18 23:13 Dose: 650 mg Dextrose (Dextrose 50% Inj) 0 ml IV STAT PRN; Protocol PRN Reason: Hypoglycemia Protocol Dextrose (Glutose 15) 0 gm PO ONCE PRN; Protocol PRN Reason: Hypoglycemia Protocol Diltiazem HCl (Cardizem Cd) 120 mg PO DAILY [facility] Last Admin: 09/27/18 09:52 Dose: 120 mg Enoxaparin Sodium (Lovenox) 40 mg SC DAILY [facility] Last Admin: 09/27/18 09:51 Dose: 40 mg Famotidine (Pepcid) 20 mg PO BID [facility] Last Admin: 09/27/18 17:53 Dose: 20 mg Glucagon (Glucagen Diagnostic Kit) 0 mg IM STAT PRN; Protocol PRN Reason: Hypoglycemia Protocol Lactated Ringer's (Lactated Ringer's) 1,000 mls @ 100 mls/hr IV .Q10H [facility] Last Admin: 09/28/18 00:53 Dose: Not Given Piperacillin Sod/Tazobactam Sod (Zosyn 3.375 Gm Iv Premix) 3.375 gm in 50 mls @ 100 mls/hr IVPB Q6H [facility]; Protocol Last Admin: 09/28/18 01:40 Dose: 100 mls/hr Dextrose (Dextrose 5% In Water 1000 Ml) 1,000 mls @ 0 mls/hr IV .Q0M PRN; Protocol PRN Reason: Hypoglycemia Protocol Insulin Detemir (Levemir) 50 unit SC [facility] Last Admin: 09/27/18 21:42 Dose: 25 units Insulin Human Regular (Novolin R) 0 unit SC [facility]; Protocol Last Admin: 09/27/18 21:29 Dose: Not Given Lisinopril (Zestril) 40 mg PO DAILY [facility] Last Admin: 09/27/18 09:49 Dose: 40 mg Metformin HCl (Glucophage) 500 mg PO BID [facility] Last Admin: 09/27/18 09:48 Dose: 500 mg Metoclopramide HCl (Reglan) 10 mg IVP [facility] Last Admin: 09/27/18 21:28 Dose: 10 mg Multivitamins (Hexavitamin) 1 tab PO DAILY [facility] Last Admin: 09/27/18 09:48 Dose: 1 tab Ondansetron HCl (Zofran Inj) 4 mg IVP Q8H PRN PRN Reason: Nausea/Vomiting Pantoprazole Sodium (Protonix Inj) 40 mg IVP DAILY [facility] Last Admin: 09/27/18 10:33 Dose: 40 mg Pneumococcal Polyvalent Vaccine (Pneumovax 23 Vaccine) 0.5 ml IM .ONCE ONE Stop: 09/28/18 10:01 Rosuvastatin Calcium (Crestor) 40 mg PO HS [facility] Last Admin: 09/27/18 22:22 Dose: 40 mg - Labs Labs: 09/28/18 07:01 09/25/18 19:39 Attending/Attestation - Attestation I have personally seen and examined this patient.: Yes I have fully participated in the care of the patient.: Yes I have reviewed all pertinent clinical information, including history, physical exam and plan: Yes Notes (Text): Patient seen and examined; I agree with the resident's note as above with the following additions/edits: Patient with htn, dm, being worked up for abdominal lymphadenopathy, admitted with hypercalcemia; Repeat chem panel not available today; hypercalcemia relatively mild; PTH level is appropriately suppressed; 25-OH vit D level is replete; still awaiting PHTrP and trying to get 1,25-OH vit D level; Otherwise, patient asymptomatic, afebrile of late; blood cultures neg, likely contaminated urine culture; remains on zosyn empirically; HTN controlled; continue current meds; Agree with heme/onc and pulm for further workup; needs LN biopsy; possiblity of lymphoma/granulomatous disease.
[2018-09-27 11:58] LABS: ALBUMIN (PEP) 2.9 g/dL (3.8-4.8); ALPHA-1-GLOBULIN (PEP) 0.5 g/dL (0.2-0.3)
--- NOTE | 2018-09-27 12:45 | CP.PCM.PN ---
Subjective - Date & Time of Evaluation Date of Evaluation: 09/27/18 Time of Evaluation: 07:20 - Subjective Subjective: Patient seen and examined at bedside. Afebrile and in no acute distress. States she is not feeling well, and has vomited all food that she's eating. Also complains of nausea. Now states that she does not vomit, but coughing a lot with copious sputum production. Continues to complain of low back pain. Patient refused to get chest CT here, and states that she had done one last week at [place], so will attempt to get the report. CXR 09/26 - No active disease. Abdominal CT 09/24 from [place] [facility] - Mild progression in retro peritoneal and mesenteric lymphadenopathy. Patient did not have any chest CT performed at [facility]. Objective - Vital Signs/Intake and Output Vital Signs (last 24 hours): Temp Pulse Resp BP Pulse Ox 98.1 F 102 H 20 153/64 H 96 09/27/18 07:52 09/27/18 07:52 09/27/18 07:52 09/27/18 07:52 09/27/18 07:52 Intake and Output: 09/27/18 09/27/18 06:59 18:59 Intake Total 1700 Balance 1700 - Medications Medications: Current Medications Acetaminophen (Tylenol 325mg Tab) 650 mg PO Q6 PRN PRN Reason: Fever >100.4 F Last Admin: 09/26/18 14:23 Dose: 650 mg Dextrose (Dextrose 50% Inj) 0 ml IV STAT PRN; Protocol PRN Reason: Hypoglycemia Protocol Dextrose (Glutose 15) 0 gm PO ONCE PRN; Protocol PRN Reason: Hypoglycemia Protocol Diltiazem HCl (Cardizem Cd) 120 mg PO DAILY [facility] Last Admin: 09/27/18 09:52 Dose: 120 mg Enoxaparin Sodium (Lovenox) 40 mg SC DAILY [facility] Last Admin: 09/27/18 09:51 Dose: 40 mg Famotidine (Pepcid) 20 mg PO BID [facility] Last Admin: 09/27/18 09:49 Dose: 20 mg Glucagon (Glucagen Diagnostic Kit) 0 mg IM STAT PRN; Protocol PRN Reason: Hypoglycemia Protocol Lactated Ringer's (Lactated Ringer's) 1,000 mls @ 100 mls/hr IV .Q10H [facility] Last Admin: 09/27/18 03:15 Dose: Not Given Piperacillin Sod/Tazobactam Sod (Zosyn 3.375 Gm Iv Premix) 3.375 gm in 50 mls @ 100 mls/hr IVPB Q6H [facility]; Protocol Last Admin: 09/27/18 08:23 Dose: 100 mls/hr Dextrose (Dextrose 5% In Water 1000 Ml) 1,000 mls @ 0 mls/hr IV .Q0M PRN; Protocol PRN Reason: Hypoglycemia Protocol Insulin Detemir (Levemir) 50 unit SC [facility] Last Admin: 09/26/18 21:42 Dose: 50 units Insulin Human Regular (Novolin R) [address] [facility]; Protocol Last Admin: 09/27/18 11:30 Dose: 1 units Lisinopril (Zestril) 40 mg PO DAILY [facility] Last Admin: 09/27/18 09:49 Dose: 40 mg Metformin HCl (Glucophage) 500 mg PO BID [facility] Last Admin: 09/27/18 09:48 Dose: 500 mg Metoclopramide HCl (Reglan) 10 mg IVP [facility] Last Admin: 09/27/18 11:47 Dose: 10 mg Multivitamins (Hexavitamin) 1 tab PO DAILY [facility] Last Admin: 09/27/18 09:48 Dose: 1 tab Ondansetron HCl (Zofran Inj) 4 mg IVP Q8H PRN PRN Reason: Nausea/Vomiting Pantoprazole Sodium (Protonix Inj) 40 mg IVP DAILY [facility] Last Admin: 09/27/18 10:33 Dose: 40 mg Pneumococcal Polyvalent Vaccine (Pneumovax 23 Vaccine) 0.5 ml IM .ONCE ONE Stop: 09/28/18 10:01 Rosuvastatin Calcium (Crestor) 40 mg PO [facility] Last Admin: 09/26/18 21:40 Dose: 40 mg - Labs Labs: 09/25/18 19:39 09/25/18 19:39 Assessment and Plan (1) Hypercalcemia Status: Acute (2) Retroperitoneal lymphadenopathy Status: Acute
--- NOTE | 2018-09-27 19:05 | CP.PCM.PN ---
Subjective - Date & Time of Evaluation Date of Evaluation: 09/27/18 Time of Evaluation: 08:00 - Subjective Subjective: not feeling well + cough Occ Vomit Continues to complain of low back pain. Objective - Vital Signs/Intake and Output Vital Signs (last 24 hours): Temp Pulse Resp BP Pulse Ox 99 F 93 H 20 131/67 96 09/27/18 16:00 09/27/18 16:00 09/27/18 16:00 09/27/18 16:00 09/27/18 16:00 Intake and Output: 09/27/18 09/28/18 18:59 06:59 Intake Total 1500 Balance 1500 - Medications Medications: Current Medications Acetaminophen (Tylenol 325mg Tab) 650 mg PO Q6 PRN PRN Reason: Fever >100.4 F Last Admin: 09/26/18 14:23 Dose: 650 mg Dextrose (Dextrose 50% Inj) 0 ml IV STAT PRN; Protocol PRN Reason: Hypoglycemia Protocol Dextrose (Glutose 15) 0 gm PO ONCE PRN; Protocol PRN Reason: Hypoglycemia Protocol Diltiazem HCl (Cardizem Cd) 120 mg PO DAILY [facility] Last Admin: 09/27/18 09:52 Dose: 120 mg Enoxaparin Sodium (Lovenox) 40 mg SC DAILY [facility] Last Admin: 09/27/18 09:51 Dose: 40 mg Famotidine (Pepcid) 20 mg PO BID [facility] Last Admin: 09/27/18 17:53 Dose: 20 mg Glucagon (Glucagen Diagnostic Kit) 0 mg IM STAT PRN; Protocol PRN Reason: Hypoglycemia Protocol Lactated Ringer's (Lactated Ringer's) 1,000 mls @ 100 mls/hr IV .Q10H [facility] Last Admin: 09/27/18 13:36 Dose: 100 mls/hr Piperacillin Sod/Tazobactam Sod (Zosyn 3.375 Gm Iv Premix) 3.375 gm in 50 mls @ 100 mls/hr IVPB Q6H [facility]; Protocol Last Admin: 09/27/18 13:29 Dose: 100 mls/hr Dextrose (Dextrose 5% In Water 1000 Ml) 1,000 mls @ 0 mls/hr IV .Q0M PRN; Protocol PRN Reason: Hypoglycemia Protocol Insulin Detemir (Levemir) 50 unit SC [facility] Last Admin: 09/26/18 21:42 Dose: 50 units Insulin Human Regular (Novolin R) 0 unit SC [facility]; Protocol Last Admin: 09/27/18 16:52 Dose: 1 units Lisinopril (Zestril) 40 mg PO DAILY [facility] Last Admin: 09/27/18 09:49 Dose: 40 mg Metformin HCl (Glucophage) 500 mg PO BID [facility] Last Admin: 09/27/18 09:48 Dose: 500 mg Metoclopramide HCl (Reglan) 10 mg IVP [facility] Last Admin: 09/27/18 16:52 Dose: 10 mg Multivitamins (Hexavitamin) 1 tab PO DAILY [facility] Last Admin: 09/27/18 09:48 Dose: 1 tab Ondansetron HCl (Zofran Inj) 4 mg IVP Q8H PRN PRN Reason: Nausea/Vomiting Pantoprazole Sodium (Protonix Inj) 40 mg IVP DAILY [facility] Last Admin: 09/27/18 10:33 Dose: 40 mg Pneumococcal Polyvalent Vaccine (Pneumovax 23 Vaccine) 0.5 ml IM .ONCE ONE Stop: 09/28/18 10:01 Rosuvastatin Calcium (Crestor) 40 mg PO [facility] Last Admin: 09/26/18 21:40 Dose: 40 mg - Labs Labs: 09/25/18 19:39 09/25/18 19:39 - Constitutional Appears: Non-toxic, Chronically Ill - Head Exam Head Exam: NORMOCEPHALIC - Eye Exam Eye Exam: absent: Scleral icterus - ENT Exam ENT Exam: Mucous Membranes Dry - Neck Exam Neck Exam: absent: Lymphadenopathy - Respiratory Exam Respiratory Exam: Decreased Breath Sounds - Cardiovascular Exam Cardiovascular Exam: REGULAR RHYTHM - GI/Abdominal Exam GI & Abdominal Exam: Distended - Rectal Exam Rectal Exam: Deferred - Exam Exam: NORMAL INSPECTION - Extremities Exam Extremities Exam: absent: Pedal Edema - Back Exam Back Exam: absent: CVA tenderness (L), CVA tenderness (R) Assessment and Plan - Assessment and Plan (Free Text) Assessment: hypercalcemia retroperitoneal adenopathy r/o metastatic CA- bowel , bladder, Lung vs Myeloma renal on board cultures so far negative TB less likely
[2018-09-27] MEDS: Insulin Detemir 100 units/ml Vial (Levemir) SC SCH (21:42)
[2018-09-28] MEDS: Lactated Ringer's 1,000 ML IV SCH ×3 (00:53→19:15)
--- NOTE | 2018-09-28 01:35 | CON ---
DATE: 09/27/2018 REASON FOR CONSULTATION: Consult for evaluation of retroperitoneal lymphadenopathy. HISTORY OF PRESENT ILLNESS: A 78-year-old female known to me from the outpatient was evaluated by me few months ago for the retroperitoneal lymph node enlargement. The patient at that time had elevated LDH, elevated beta-2 microglobulin. The patient already had biopsy done last year which was benign. However, the patient had repeat CAT scan done which showed significantly increase in the size of the lymph node. The patient is symptomatic such as night sweats and decreased appetite. The patient was evaluated by me on Sunday and advised to have biopsy done and also advised to get the CAT scan disc from the MRI center. However, the patient was started on tramadol, from then she developed diarrhea, nausea, vomiting and headache. Brought to the emergency room, admitted. I am called and consulted for further evaluation and suggestions. PAST MEDICAL HISTORY: Significant for diabetes mellitus, hypertension, high cholesterol, arthritis, osteoporosis. PAST SURGICAL HISTORY: Bilateral cataract surgery, endoscopy, pessary insertion for prolapsed uterus. MEDICATIONS: The patient is on lisinopril, amlodipine, metoprolol, metformin, Humalog, alendronate, multivitamin. ALLERGIES: DENIES ANY DRUG ALLERGIES. SOCIAL HISTORY: Nonsmoker. No ethanol abuse. Very supportive family. REVIEW OF SYSTEMS: Denies any headache, dizziness, or blackout. No chest pain or palpitation. No shortness of breath. No cough or sputum. Generalized aches and pain. Night sweats. Decreased appetite. No change in the bowel habit. No change in the color of the stool. No tingling or numbness. No localized weakness. No bone pain. PHYSICAL EXAMINATION: GENERAL: Awake, alert, oriented, quiet, pleasant, not in acute distress. VITAL SIGNS: Temperature 98.3, pulse 90, respirations 20, blood pressure 126/68. HEENT: Head: Normocephalic and atraumatic. Eyes: Conjunctivae pink, sclerae white. Pupils reacting to light. Ears, nose and throat: Within normal limits. LUNGS: Bilaterally good air entry. Clear to auscultation and percussion. HEART: S1 and S2 are regular. No gallop. No murmur. ABDOMEN: Soft, nondistended, nontender. No hepatosplenomegaly. CENTRAL NERVOUS SYSTEM: No gross motor or sensory deficit. LYMPH NODES: No cervical, axillary or inguinal lymph nodes palpable. LABORATORY DATA: WBC 7900, hemoglobin 11.2, platelet count 466,000. Serum chemistry, SGOT 73, SGPT 23, and alkaline phosphatase 144. Rest is essentially normal. IMPRESSION: 1. Retroperitoneal lymphadenopathy. 2. Reactive thrombocytosis. PLAN: Clinical status discussed with the patient. Lab results discussed with the patient. The patient had a CAT scan done in 06/2018. The patient can get that CAT scan, so it can be related by the radiology and have biopsy. I is almost three month, the patient should have another CAT scan done, so it can be biopsied. The patient will discuss about this with the daughter and let us know. The patient has reactive thrombocytosis most likely and does not require any treatment for that at the present time. The patient has understood that and agreed with the treatment plan. Thank you for letting me to participate in the care of this patient, and I will follow up the patient with you. Liseth Sheehan MD cc: Tonie Llamas MD
[2018-09-28] MEDS: Piperacill/Tazo 3.375gm in Dex 3.375 GM/50 ML BAG IVPB SCH ×4 (01:40→20:08)
--- NOTE | 2018-09-28 03:30 | CP.PCM.PN ---
Subjective - Subjective Subjective: dictated Objective - Vital Signs/Intake and Output Vital Signs (last 24 hours): Temp Pulse Resp BP Pulse Ox 98.9 F 84 20 123/67 94 L 09/28/18 00:00 09/28/18 00:00 09/28/18 00:00 09/28/18 00:00 09/28/18 00:00 Intake and Output: 09/27/18 09/28/18 18:59 06:59 Intake Total 1500 1150 Balance 1500 1150 - Medications Medications: Current Medications Acetaminophen (Tylenol 325mg Tab) 650 mg PO Q6 PRN PRN Reason: Fever >100.4 F Last Admin: 09/26/18 14:23 Dose: 650 mg Acetaminophen (Tylenol 325mg Tab) 650 mg PO Q6 PRN PRN Reason: Pain, moderate (4-7) Last Admin: 09/27/18 23:13 Dose: 650 mg Dextrose (Dextrose 50% Inj) 0 ml IV STAT PRN; Protocol PRN Reason: Hypoglycemia Protocol Dextrose (Glutose 15) 0 gm PO ONCE PRN; Protocol PRN Reason: Hypoglycemia Protocol Diltiazem HCl (Cardizem Cd) 120 mg PO DAILY [facility] Last Admin: 09/27/18 09:52 Dose: 120 mg Enoxaparin Sodium (Lovenox) 40 mg SC DAILY [facility] Last Admin: 09/27/18 09:51 Dose: 40 mg Famotidine (Pepcid) 20 mg PO BID [facility] Last Admin: 09/27/18 17:53 Dose: 20 mg Glucagon (Glucagen Diagnostic Kit) 0 mg IM STAT PRN; Protocol PRN Reason: Hypoglycemia Protocol Lactated Ringer's (Lactated Ringer's) 1,000 mls @ 100 mls/hr IV .Q10H [facility] Last Admin: 09/28/18 00:53 Dose: Not Given Piperacillin Sod/Tazobactam Sod (Zosyn 3.375 Gm Iv Premix) 3.375 gm in 50 mls @ 100 mls/hr IVPB Q6H [facility]; Protocol Last Admin: 09/28/18 01:40 Dose: 100 mls/hr Dextrose (Dextrose 5% In Water 1000 Ml) 1,000 mls @ 0 mls/hr IV .Q0M PRN; Protocol PRN Reason: Hypoglycemia Protocol Insulin Detemir (Levemir) 50 unit SC [facility] Last Admin: 09/27/18 21:42 Dose: 25 units Insulin Human Regular (Novolin R) 0 unit SC [facility]; Protocol Last Admin: 09/27/18 21:29 Dose: Not Given Lisinopril (Zestril) 40 mg PO DAILY [facility] Last Admin: 09/27/18 09:49 Dose: 40 mg Metformin HCl (Glucophage) 500 mg PO BID [facility] Last Admin: 09/27/18 09:48 Dose: 500 mg Metoclopramide HCl (Reglan) 10 mg IVP [facility] Last Admin: 09/27/18 21:28 Dose: 10 mg Multivitamins (Hexavitamin) 1 tab PO DAILY [facility] Last Admin: 09/27/18 09:48 Dose: 1 tab Ondansetron HCl (Zofran Inj) 4 mg IVP Q8H PRN PRN Reason: Nausea/Vomiting Pantoprazole Sodium (Protonix Inj) 40 mg IVP DAILY [facility] Last Admin: 09/27/18 10:33 Dose: 40 mg Pneumococcal Polyvalent Vaccine (Pneumovax 23 Vaccine) 0.5 ml IM .ONCE ONE Stop: 09/28/18 10:01 Rosuvastatin Calcium (Crestor) 40 mg PO [facility] Last Admin: 09/27/18 22:22 Dose: 40 mg - Labs Labs: 09/25/18 19:39 09/25/18 19:39
[2018-09-28 07:20] LABS: BASO % 0.4 % (0.0-2.0); EOS # 0.1 K/uL (0.0-0.7); LYMPH # 1.1 K/uL (1.0-4.3); MEAN CELL VOLUME 89.8 fL (81.0-99.0); MEAN CORPUSCULAR HEMOGLOBIN 30.1 pg (27.0-31.0); MEAN CORPUSCULAR HGB CONC 33.5 g/dL (33.0-37.0); MEAN PLATELET VOLUME 6.6 fL (7.2-11.7); MONO # 0.6 K/uL (0.0-0.8); NEUT # 3.3 K/uL (1.8-7.0); NEUT % 65.6 % (50.0-75.0); NRBC % 0.1 % (0.0-2.0); RBC 2.83 Mil/uL (3.80-5.20); RED CELL DISTRIBUTION WIDTH 13.9 % (11.5-14.5)
[2018-09-28 07:27] LABS: HEMOGLOBIN 8.5 g/dL (11.0-16.0)
[2018-09-28 08:02] LABS: CALCIUM 9.9 mg/dl (8.6-10.4)
[2018-09-28] MEDS: (Novolin R) Insulin Human Regular 100 units/ml vial SC SCH ×4 (08:30→21:42)
[2018-09-28] MEDS ORDERED: Pneumococcal 23-Valent Vaccine IM ONE (10:00)
[2018-09-28] MEDS: diltiaZEM 120 mg/24 Hours CD Cap PO SCH (10:43)
[2018-09-28] MEDS: Multiple Vitamins Tab PO SCH (10:44)
[2018-09-28] MEDS: Enoxaparin 30 mg Syringe SC SCH (11:00)
[2018-09-28] MEDS ORDERED: Enoxaparin 40 mg Syringe SC SCH (11:00)
--- NOTE | 2018-09-28 13:33 | CP.PCM.CON ---
History of Present Illness - History of Present Illness History of Present Illness: Reason For Consultation: Abnormal EKG Patient is a 78 y/o female with PMHx of DM, HTN, hypercholesteremia, arthritis, and osteoporosis, who presented to the ED on 09/25/18 with complaint of chest pain, diarrhea, and fatigue after taking one dose of Tramadol in the morning. She states she has been having low back pain and hip pain for a year now, and she follows up with Dr. Sheehan, a heme/oncologist for history of retroperitoneal lymphadenopathy. In the ED, bloodwork showed Ca of 10.8. Currently, patient has right low back pain and b/l LE pain. Denies chest pain, shortness of breath, coughing, headache, n/v/d, and blurry vision. PMD: Dr. Llamas Heme/Onc: Dr. Aaron Sheehan PMHx: DM, HTN, hypercholesteremia, arthritis, osteoporosis PSHx: b/l cataract surgery, endoscopy (2016), pessary insertion (March 2018) Meds: Lisinopril, Amlodipine 10mg, Metoprolol 50mg, metformin 500mg, Lovastatin 40mg, Humalog, MV, Alendronate FHx: mother-DM ( at 77 y/o due to pneumonia), father-HTN ( in 80's) Allergies: denies, NKDA Social: denies tobacco, alcohol, and drug use; lives with daughter in [place]. -CT abdomen/pelvis (06/25/18): [id number] enlarged periaortic and retroperitoneal lympadenopathy. The largest conglomerate lymphadenopathy seen to the left of aorta measures 3.1cm. Meds Allergies/Adverse Reactions: Allergies Allergy/AdvReac Type Severity Reaction Status Date / Time No Known Allergies Allergy Verified 08/25/18 15:03 - Medications Medications: Current Medications Acetaminophen (Tylenol 325mg Tab) 650 mg PO Q6 PRN PRN Reason: Fever >100.4 F Last Admin: 09/26/18 14:23 Dose: 650 mg Diltiazem HCl (Cardizem Cd) 120 mg PO DAILY [facility] Enoxaparin Sodium (Lovenox) 40 mg SC DAILY [facility] Last Admin: 09/26/18 10:42 Dose: 40 mg Famotidine (Pepcid) 20 mg PO BID [facility] Last Admin: 09/26/18 12:07 Dose: 20 mg Home Med (Insulin Detemir [Levemir]) 50 units SC [facility] Last Admin: 09/25/18 22:34 Dose: Not Given Lactated Ringer's (Lactated Ringer's) 1,000 mls @ 100 mls/hr IV .Q10H [facility] Last Admin: 09/26/18 07:15 Dose: 100 mls/hr Piperacillin Sod/Tazobactam Sod (Zosyn 3.375 Gm Iv Premix) 3.375 gm in 50 mls @ 100 mls/hr IVPB Q6H [facility]; Protocol Last Admin: 09/26/18 14:29 Dose: 100 mls/hr Insulin Human Regular (Novolin R) 0 unit SC [facility]; Protocol Last Admin: 09/26/18 12:13 Dose: 3 units Lisinopril (Zestril) 40 mg PO DAILY [facility] Last Admin: 09/26/18 10:42 Dose: 40 mg Metformin HCl (Glucophage) 500 mg PO BID [facility] Last Admin: 09/26/18 10:42 Dose: 500 mg Multivitamins (Hexavitamin) 1 tab PO DAILY [facility] Last Admin: 09/26/18 10:42 Dose: 1 tab Oxycodone/Acetaminophen (Percocet 5/325 Mg Tab) 1 tab PO Q4H PRN PRN Reason: Pain, moderate (4-7) Stop: 09/28/18 21:10 Last Admin: 09/26/18 12:00 Dose: 1 tab Pneumococcal Polyvalent Vaccine (Pneumovax 23 Vaccine) 0.5 ml IM .ONCE ONE Stop: 09/28/18 10:01 Rosuvastatin Calcium (Crestor) 40 mg PO [facility] Last Admin: 09/25/18 22:23 Dose: 40 mg Physical Exam - Head Exam Head Exam: ATRAUMATIC, NORMOCEPHALIC - ENT Exam ENT Exam: Mucous Membranes Moist - Respiratory Exam Respiratory Exam: Clear to Auscultation Bilateral - Cardiovascular Exam Cardiovascular Exam: REGULAR RHYTHM Results - Vital Signs Recent Vital Signs: Last Vital Signs Temp 98.3 F 09/26/18 15:25 Pulse 105 H 09/26/18 08:15 Resp 20 09/26/18 08:15 BP 167/61 H 11/15/18 08:15 Pulse Ox 98 09/26/18 08:15 - Labs Result Diagrams: 09/25/18 19:39 09/25/18 19:39 Labs: Laboratory Results - last 24 hr 09/25/18 09/25/18 09/25/18 19:39 19:39 19:39 WBC 7.9 RBC 3.72 L Hgb 11.2 D Hct 33.3 L MCV 89.6 D MCH 30.1 MCHC 33.6 RDW 14.2 Plt Count 466 H MPV 6.4 L Neut % (Auto) 69.3 Lymph % (Auto) 18.0 L Vernon % (Auto) 11.7 H Eos % (Auto) 0.7 Baso % (Auto) 0.3 Neut # (Auto) 5.5 Lymph # (Auto) 1.4 Vernon # (Auto) 0.9 H Eos # (Auto) 0.1 Baso # (Auto) 0.0 Sodium 135 Potassium 4.3 Chloride 97 L Carbon Dioxide 28 Anion Gap 14 BUN 17 Creatinine 0.9 Est GFR ( Amer) > 60 Est GFR (Non-Af Amer) > 60 POC Glucose (mg/dL) Random Glucose 148 H Calcium 10.8 H Phosphorus 4.0 Magnesium 2.1 Total Bilirubin 0.5 AST 73 H D ALT 23 Alkaline Phosphatase 144 H D Total Protein 7.9 Albumin 4.2 Globulin 3.7 Albumin/Globulin Ratio 1.1 Urine Color Yellow Urine Clarity Clear Urine pH 7.0 Ur Specific [place]wood 1.008 Urine Protein Negative Urine Glucose (UA) 1+ Urine Ketones Negative Urine Blood Negative Urine Nitrate Negative Urine Bilirubin Negative Urine Urobilinogen Normal Ur Leukocyte Esterase 1+ H Urine WBC (Auto) 10 H Urine RBC (Auto) 1 Ur Squamous Epith Cells 1 Urine Bacteria Occ H Ur Random Sodium Urine Calcium 09/25/18 09/25/18 09/25/18 21:28 21:28 22:25 WBC RBC Hgb Hct MCV MCH MCHC RDW Plt Count MPV Neut % (Auto) Lymph % (Auto) Vernon % (Auto) Eos % (Auto) Baso % (Auto) Neut # (Auto) Lymph # (Auto) Vernon # (Auto) Eos # (Auto) Baso # (Auto) Sodium Potassium Chloride Carbon Dioxide Anion Gap BUN Creatinine Est GFR ( Amer) Est GFR (Non-Af Amer) POC Glucose (mg/dL) 172 H Random Glucose Calcium Phosphorus Magnesium Total Bilirubin AST ALT Alkaline Phosphatase Total Protein Albumin Globulin Albumin/Globulin Ratio Urine Color Urine Clarity Urine pH Ur Specific [place]wood Urine Protein Urine Glucose (UA) Urine Ketones Urine Blood Urine Nitrate Urine Bilirubin Urine Urobilinogen Ur Leukocyte Esterase Urine WBC (Auto) Urine RBC (Auto) Ur Squamous Epith Cells Urine Bacteria Ur Random Sodium 49 Urine Calcium 12.3 09/26/18 09/26/18 07:14 11:06 WBC RBC Hgb Hct MCV MCH MCHC RDW Plt Count MPV Neut % (Auto) Lymph % (Auto) Vernon % (Auto) Eos % (Auto) Baso % (Auto) Neut # (Auto) Lymph # (Auto) Vernon # (Auto) Eos # (Auto) Baso # (Auto) Sodium Potassium Chloride Carbon Dioxide Anion Gap BUN Creatinine Est GFR ( Amer) Est GFR (Non-Af Amer) POC Glucose (mg/dL) 143 H 251 H Random Glucose Calcium Phosphorus Magnesium Total Bilirubin AST ALT Alkaline Phosphatase Total Protein Albumin Globulin Albumin/Globulin Ratio Urine Color Urine Clarity Urine pH Ur Specific [place]wood Urine Protein Urine Glucose (UA) Urine Ketones Urine Blood Urine Nitrate Urine Bilirubin Urine Urobilinogen Ur Leukocyte Esterase Urine WBC (Auto) Urine RBC (Auto) Ur Squamous Epith Cells Urine Bacteria Ur Random Sodium Urine Calcium Assessment & Plan (1) Hypercalcemia/Abnormal EKG Status: Acute Comment: EKG suggests CAD Will check ECHO and stress test (2) Hypercalcemia Status: Acute Comment: IV fluids. CAT scan of the chest to rule out mediastinal lymphadenopathy (3) Retroperitoneal lymphadenopathy Status: Acute Past Patient History - Infectious Disease Hx of Infectious Diseases: None - Past Medical History & Family History Past Medical History?: Yes - Past Social History Smoking Status: Never Smoked - CARDIAC Hx Hypercholesterolemia: Yes Hx Hypertension: Yes - PULMONARY Hx Respiratory Disorders: No - NEUROLOGICAL Hx Neurological Disorder: No - HEENT Hx HEENT Problems: Yes Hx Cataracts: Yes (BILATERAL CATARACT SURGERY) Hx Deafness: (DOUGLAS ( bilateral)) - RENAL Hx Chronic Kidney Disease: No - ENDOCRINE/METABOLIC Hx Diabetes Mellitus Type 2: Yes - HEMATOLOGICAL/ONCOLOGICAL Hx Blood Disorders: No - INTEGUMENTARY Hx Dermatological Problems: No - MUSCULOSKELETAL/RHEUMATOLOGICAL Hx Falls: No - GASTROINTESTINAL Hx Gastrointestinal Disorders: Yes Other/Comment: HEARTBURN, EPIGASTRIC PAIN - GENITOURINARY/GYNECOLOGICAL Hx Genitourinary Disorders: No - PSYCHIATRIC Hx Substance Use: No - SURGICAL HISTORY Hx Surgeries: Yes Hx Cataract Extraction: Yes (BILATERAL) Hx Eye Surgery: Yes (BILATERAL EYELIDS) - ANESTHESIA Hx Anesthesia: Yes Hx Anesthesia Reactions: No Hx Malignant Hyperthermia: No Meds Allergies/Adverse Reactions: Allergies Allergy/AdvReac Type Severity Reaction Status Date / Time No Known Allergies Allergy Verified 08/25/18 15:03 - Medications Medications: Current Medications Acetaminophen (Tylenol 325mg Tab) 650 mg PO Q6 PRN PRN Reason: Fever >100.4 F Last Admin: 09/28/18 06:27 Dose: 650 mg Acetaminophen (Tylenol 325mg Tab) 650 mg PO Q6 PRN PRN Reason: Pain, moderate (4-7) Last Admin: 09/27/18 23:13 Dose: 650 mg Dextrose (Dextrose 50% Inj) 0 ml IV STAT PRN; Protocol PRN Reason: Hypoglycemia Protocol Dextrose (Glutose 15) 0 gm PO ONCE PRN; Protocol PRN Reason: Hypoglycemia Protocol Diltiazem HCl (Cardizem Cd) 120 mg PO DAILY [facility] Last Admin: 09/28/18 10:43 Dose: 120 mg Enoxaparin Sodium (Lovenox) 40 mg SC DAILY [facility] Last Admin: 09/28/18 11:04 Dose: 40 mg Famotidine (Pepcid) 20 mg PO BID [facility] Last Admin: 09/28/18 10:44 Dose: 20 mg Glucagon (Glucagen Diagnostic Kit) 0 mg IM STAT PRN; Protocol PRN Reason: Hypoglycemia Protocol Lactated Ringer's (Lactated Ringer's) 1,000 mls @ 100 mls/hr IV .Q10H [facility] Last Admin: 09/28/18 10:43 Dose: 100 mls/hr Piperacillin Sod/Tazobactam Sod (Zosyn 3.375 Gm Iv Premix) 3.375 gm in 50 mls @ 100 mls/hr IVPB Q6H [facility]; Protocol Last Admin: 09/28/18 08:39 Dose: 100 mls/hr Dextrose (Dextrose 5% In Water 1000 Ml) 1,000 mls @ 0 mls/hr IV .Q0M PRN; Protocol PRN Reason: Hypoglycemia Protocol Insulin Detemir (Levemir) 50 unit SC [facility] Last Admin: 09/27/18 21:42 Dose: 25 units Insulin Human Regular (Novolin R) 0 unit SC [facility]; Protocol Last Admin: 09/28/18 12:30 Dose: 1 units Lisinopril (Zestril) 40 mg PO DAILY [facility] Last Admin: 09/28/18 10:44 Dose: 40 mg Metformin HCl (Glucophage) 500 mg PO BID [facility] Last Admin: 09/27/18 09:48 Dose: 500 mg Metoclopramide HCl (Reglan) 10 mg IVP [facility] Last Admin: 09/28/18 12:30 Dose: 10 mg Multivitamins (Hexavitamin) 1 tab PO DAILY [facility] Last Admin: 09/28/18 10:44 Dose: 1 tab Ondansetron HCl (Zofran Inj) 4 mg IVP Q8H PRN PRN Reason: Nausea/Vomiting Pantoprazole Sodium (Protonix Inj) 40 mg IVP DAILY [facility] Last Admin: 09/28/18 10:45 Dose: 40 mg Rosuvastatin Calcium (Crestor) 40 mg PO HS [facility] Last Admin: 09/27/18 22:22 Dose: 40 mg Results - Vital Signs Recent Vital Signs: Last Vital Signs Temp 98.3 F 09/28/18 07:55 Pulse 81 09/28/18 07:55 Resp 20 09/28/18 07:55 BP 114/64 09/28/18 07:55 Pulse Ox 95 09/28/18 07:55 - Labs Result Diagrams: 09/28/18 07:01 09/28/18 07:01 Labs: Laboratory Results - last 24 hr 09/25/18 09/27/18 09/27/18 21:28 16:10 21:14 WBC RBC Hgb Hct MCV MCH MCHC RDW Plt Count MPV Neut % (Auto) Lymph % (Auto) Vernon % (Auto) Eos % (Auto) Baso % (Auto) Neut # (Auto) Lymph # (Auto) Vernon # (Auto) Eos # (Auto) Baso # (Auto) Sodium Potassium Chloride Carbon Dioxide Anion Gap BUN Creatinine Est GFR ( Amer) Est GFR (Non-Af Amer) POC Glucose (mg/dL) 158 H 142 H Random Glucose Calcium Calcium (PTH Intact) 9.9 PTH w/Ion &Tot Calcium 6 L 09/28/18 09/28/18 09/28/18 06:57 07:01 07:01 WBC 5.0 RBC 2.83 L Hgb 8.5 L D Hct 25.4 L MCV 89.8 MCH 30.1 MCHC 33.5 RDW 13.9 Plt Count 346 D MPV 6.6 L Neut % (Auto) 65.6 Lymph % (Auto) 21.0 Vernon % (Auto) 12.0 H Eos % (Auto) 1.0 Baso % (Auto) 0.4 Neut # (Auto) 3.3 Lymph # (Auto) 1.1 Vernon # (Auto) 0.6 Eos # (Auto) 0.1 Baso # (Auto) 0.0 Sodium 137 Potassium 3.6 Chloride 96 L Carbon Dioxide 30 Anion Gap 14 BUN 14 Creatinine 1.2 Est GFR ( Amer) 53 Est GFR (Non-Af Amer) 44 POC Glucose (mg/dL) 268 H Random Glucose 279 H Calcium 9.9 Calcium (PTH Intact) PTH w/Ion &Tot Calcium 09/28/18 10:50 WBC RBC Hgb Hct MCV MCH MCHC RDW Plt Count MPV Neut % (Auto) Lymph % (Auto) Vernon % (Auto) Eos % (Auto) Baso % (Auto) Neut # (Auto) Lymph # (Auto) Vernon # (Auto) Eos # (Auto) Baso # (Auto) Sodium Potassium Chloride Carbon Dioxide Anion Gap BUN Creatinine Est GFR ( Amer) Est GFR (Non-Af Amer) POC Glucose (mg/dL) 173 H Random Glucose Calcium Calcium (PTH Intact) PTH w/Ion &Tot Calcium
[2018-09-28] MEDS ORDERED: Insulin Detemir 100 units/ml Vial (Levemir) SC SCH (17:48)
--- NOTE | 2018-09-28 17:59 | CP.PCM.PN ---
Subjective - Date & Time of Evaluation Date of Evaluation: 09/28/18 Time of Evaluation: 15:00 - Subjective Subjective: patient seen and examined Denies shortness of breath, denies cough, denies fever chills Getting IV fluids calcium level improving patient and agreed for CT of the chest Objective - Vital Signs/Intake and Output Vital Signs (last 24 hours): Temp Pulse Resp BP Pulse Ox 98.3 F 86 20 138/72 95 09/28/18 16:00 09/28/18 16:00 09/28/18 16:00 09/28/18 16:00 09/28/18 16:00 Intake and Output: 09/28/18 09/28/18 06:59 18:59 Intake Total 2310 1300 Balance 2310 1300 - Medications Medications: Current Medications Acetaminophen (Tylenol 325mg Tab) 650 mg PO Q6 PRN PRN Reason: Fever >100.4 F Last Admin: 09/28/18 06:27 Dose: 650 mg Acetaminophen (Tylenol 325mg Tab) 650 mg PO Q6 PRN PRN Reason: Pain, moderate (4-7) Last Admin: 09/27/18 23:13 Dose: 650 mg Dextrose (Dextrose 50% Inj) 0 ml IV STAT PRN; Protocol PRN Reason: Hypoglycemia Protocol Dextrose (Glutose 15) 0 gm PO ONCE PRN; Protocol PRN Reason: Hypoglycemia Protocol Diltiazem HCl (Cardizem Cd) 120 mg PO DAILY [facility] Last Admin: 09/28/18 10:43 Dose: 120 mg Enoxaparin Sodium (Lovenox) 40 mg SC DAILY [facility] Last Admin: 09/28/18 11:04 Dose: 40 mg Famotidine (Pepcid) 20 mg PO BID [facility] Last Admin: 09/28/18 17:32 Dose: 20 mg Glucagon (Glucagen Diagnostic Kit) 0 mg IM STAT PRN; Protocol PRN Reason: Hypoglycemia Protocol Lactated Ringer's (Lactated Ringer's) 1,000 mls @ 100 mls/hr IV .Q10H [facility] Last Admin: 09/28/18 10:43 Dose: 100 mls/hr Piperacillin Sod/Tazobactam Sod (Zosyn 3.375 Gm Iv Premix) 3.375 gm in 50 mls @ 100 mls/hr IVPB Q6H [facility]; Protocol Last Admin: 09/28/18 15:00 Dose: 100 mls/hr Dextrose (Dextrose 5% In Water 1000 Ml) 1,000 mls @ 0 mls/hr IV .Q0M PRN; Protocol PRN Reason: Hypoglycemia Protocol Insulin Detemir (Levemir) 25 unit SC [facility] Insulin Human Regular (Novolin R) 0 unit SC [facility]; Protocol Last Admin: 09/28/18 17:35 Dose: 3 units Lisinopril (Zestril) 40 mg PO DAILY [facility] Last Admin: 09/28/18 10:44 Dose: 40 mg Metformin HCl (Glucophage) 500 mg PO BID [facility] Last Admin: 09/27/18 09:48 Dose: 500 mg Metoclopramide HCl (Reglan) 10 mg IVP [facility] Last Admin: 09/28/18 16:30 Dose: 10 mg Multivitamins (Hexavitamin) 1 tab PO DAILY [facility] Last Admin: 09/28/18 10:44 Dose: 1 tab Ondansetron HCl (Zofran Inj) 4 mg IVP Q8H PRN PRN Reason: Nausea/Vomiting Pantoprazole Sodium (Protonix Inj) 40 mg IVP DAILY [facility] Last Admin: 09/28/18 10:45 Dose: 40 mg Rosuvastatin Calcium (Crestor) 40 mg PO [facility] Last Admin: 09/27/18 22:22 Dose: 40 mg - Labs Labs: 09/28/18 07:01 09/28/18 07:01 - Head Exam Head Exam: ATRAUMATIC, NORMOCEPHALIC - ENT Exam ENT Exam: Mucous Membranes Moist - Neck Exam Neck Exam: Normal Inspection - Respiratory Exam Respiratory Exam: Clear to Ausculation Bilateral - Cardiovascular Exam Cardiovascular Exam: REGULAR RHYTHM - GI/Abdominal Exam GI & Abdominal Exam: Soft, Normal Bowel Sounds Assessment and Plan (1) Hypercalcemia Assessment & Plan: CAT scan of the chest to rule out mediastinal lymphadenopatjy and if patient can have EBUS/biopsy no active respiratory problem( no shortness of breath, no cough,, no chest pain) low Hemoglobin most likely secondary to hydration as patient denies any active bleeding Spoke with Daughter at length Status: Acute (2) Retroperitoneal lymphadenopathy Status: Acute
--- NOTE | 2018-09-28 23:31 | CP.PCM.PN ---
Subjective - Subjective Subjective: dictated Objective - Vital Signs/Intake and Output Vital Signs (last 24 hours): Temp Pulse Resp BP Pulse Ox 98.3 F 86 20 138/72 95 09/28/18 16:00 09/28/18 16:00 09/28/18 16:00 09/28/18 16:00 09/28/18 16:00 Intake and Output: 09/28/1818 18:59 06:59 Intake Total 1300 850 Balance 1300 850 - Medications Medications: Current Medications Acetaminophen (Tylenol 325mg Tab) 650 mg PO Q6 PRN PRN Reason: Fever >100.4 F Last Admin: 09/28/18 18:33 Dose: 650 mg Acetaminophen (Tylenol 325mg Tab) 650 mg PO Q6 PRN PRN Reason: Pain, moderate (4-7) Last Admin: 09/27/18 23:13 Dose: 650 mg Dextrose (Dextrose 50% Inj) 0 ml IV STAT PRN; Protocol PRN Reason: Hypoglycemia Protocol Dextrose (Glutose 15) 0 gm PO ONCE PRN; Protocol PRN Reason: Hypoglycemia Protocol Diltiazem HCl (Cardizem Cd) 120 mg PO DAILY [facility] Last Admin: 09/28/18 10:43 Dose: 120 mg Enoxaparin Sodium (Lovenox) 40 mg SC DAILY [facility] Last Admin: 09/28/18 11:04 Dose: 40 mg Famotidine (Pepcid) 20 mg PO BID [facility] Last Admin: 09/28/18 17:32 Dose: 20 mg Glucagon (Glucagen Diagnostic Kit) 0 mg IM STAT PRN; Protocol PRN Reason: Hypoglycemia Protocol Piperacillin Sod/Tazobactam Sod (Zosyn 3.375 Gm Iv Premix) 3.375 gm in 50 mls @ 100 mls/hr IVPB Q6H [facility]; Protocol Last Admin: 09/28/18 20:08 Dose: 100 mls/hr Dextrose (Dextrose 5% In Water 1000 Ml) 1,000 mls @ 0 mls/hr IV .Q0M PRN; Protocol PRN Reason: Hypoglycemia Protocol Insulin Detemir (Levemir) 25 unit SC HS [facility] Last Admin: 09/28/18 21:38 Dose: 25 unit Insulin Human Regular (Novolin R) 0 unit SC ACHS [facility]; Protocol Last Admin: 09/28/18 21:42 Dose: Not Given Lisinopril (Zestril) 40 mg PO DAILY [facility] Last Admin: 09/28/18 10:44 Dose: 40 mg Metformin HCl (Glucophage) 500 mg PO BID [facility] Last Admin: 09/27/18 09:48 Dose: 500 mg Metoclopramide HCl (Reglan) 10 mg IVP ACHS [facility] Last Admin: 09/28/18 21:41 Dose: 10 mg Multivitamins (Hexavitamin) 1 tab PO DAILY [facility] Last Admin: 09/28/18 10:44 Dose: 1 tab Ondansetron HCl (Zofran Inj) 4 mg IVP Q8H PRN PRN Reason: Nausea/Vomiting Pantoprazole Sodium (Protonix Inj) 40 mg IVP DAILY [facility] Last Admin: 09/28/18 10:45 Dose: 40 mg Rosuvastatin Calcium (Crestor) 40 mg PO HS [facility] Last Admin: 09/28/18 21:37 Dose: 40 mg - Labs Labs: 09/28/18 07:01 09/28/18 07:01
--- NOTE | 2018-09-29 00:25 | PN ---
DATE: 09/28/2018 SUBJECTIVE: The patient is feeling better. She is questioning the need for another CAT scan before biopsy of the lymph nodes. She is afebrile. She denies any dizziness. She denies any tingling, numbness, or paresthesia in the feet. PHYSICAL EXAMINATION: VITAL SIGNS: BP 138/72, pulse 86, respiratory rate 20, temperature 98.3. LUNGS: Decreased air entry. ASSESSMENT: 1. Hypercalcemia, pending biopsy, etiology unclear. 2. Lymphadenopathy, pending biopsy. 3. Hypertension, poorly controlled. 4. Diabetes. PLAN: Medical management. Blood pressure control. Monitor the patient. Ramsey Fisher MD
[2018-09-29 00:43] VITALS: BP 131/72; PULSE 88; TEMP 97.7; O2SAT 94
[2018-09-29] MEDS: Piperacill/Tazo 3.375gm in Dex 3.375 GM/50 ML BAG IVPB SCH (01:47)
[2018-09-29] MEDS ORDERED: Iodixanol 320 MG/ML 100 ML BOTTLE IV ONE (04:47)
[2018-09-29] MEDS ORDERED: Lactated Ringer's 1,000 ML IV ONE (05:25)
[2018-09-29] MEDS ORDERED: Sodium Bicarbonate (8.4%) 50 Meq Syringe ONE (06:00)
[2018-09-29] MEDS ORDERED: Magnesium Sulfate 1 gm/2 ml Inj ONE (06:00)
[2018-09-29] MEDS ORDERED: Calcium Chloride 1000 mg/10 ml Syringe ONE (06:00)
--- NOTE | 2018-09-29 06:20 | PCM.ANES ---
Anesthesia Emergent Intubation - Diagnosis Working Diagnosis:: code blue - Intubation Attempts Previous Number of Intubation Attempts:: 1 - Pre-Intubation Vital Signs Oxygen Delivery Method: Ambu-Bag - Airway Management Oropharyngeal Area Suctioned: Yes Possible Aspiration: Yes (arrived to the code blue, icu attending had attempted once prior) - Method of Intubation Intubation Method: Oral ETT Lipline@: 23 Easy: Yes Atramatic: Yes - Intubation Devices Edith Blade Size Used: 3 Recommendations: Ventilator - Post-Intubation Vital Signs Blood Pressure: 180/95 Heart Rate: 170 FIO2: 100
[2018-09-29 06:24] LABS: BASO # 0.1 K/uL (0.0-0.2); BASO % 0.4 % (0.0-2.0); EOS # 0.1 K/uL (0.0-0.7); EOS % 0.4 % (0.0-4.0); HEMOGLOBIN 12.7 g/dL (11.0-16.0); LYMPH # 6.3 K/uL (1.0-4.3); LYMPH % 43.5 % (20.0-40.0); MEAN CELL VOLUME 91.5 fL (81.0-99.0); MEAN CORPUSCULAR HEMOGLOBIN 29.6 pg (27.0-31.0); MEAN CORPUSCULAR HGB CONC 32.3 g/dL (33.0-37.0); MEAN PLATELET VOLUME 6.6 fL (7.2-11.7); MONO # 0.9 K/uL (0.0-0.8); MONO % 6.2 % (0.0-10.0); NEUT # 7.2 K/uL (1.8-7.0); NEUT % 49.5 % (50.0-75.0); NRBC % 0.2 % (0.0-2.0); RBC 4.3 Mil/uL (3.80-5.20); RED CELL DISTRIBUTION WIDTH 14.7 % (11.5-14.5); WHITE BLOOD COUNT 14.6 K/uL (4.8-10.8)
[2018-09-29 06:40] LABS: ARTERIAL BLOOD GAS HCO3 8.9 mmol/L (21-28); ARTERIAL BLOOD GAS O2 SAT 87.2 % (95-98); ARTERIAL BLOOD GAS PCO2 51 mm/Hg (35-45); ARTERIAL BLOOD GAS PH 6.97 (7.35-7.45); ARTERIAL BLOOD GAS PO2 76 mm/Hg (80-100); ARTERIAL BLOOD GAS TCO2 13.3 mmol/L (22-28)
[2018-09-29 06:40] LABS: ALT/SGPT 19 U/L (9-52); AST/SGOT 57 U/L (14-36); BLOOD UREA NITROGEN 11 mg/dL (7-17); CALCIUM 10.5 mg/dl (8.6-10.4); GFR NON-AFRICAN AMERICAN 54
--- NOTE | 2018-09-29 06:47 | PCM.RRT ---
<Melani Alas - Last Filed: 09/29/18 07:33> FOOD AND BEVERAGE ASSOCIATE Nurses Assessment - Situation Date: 09/29/18 Time FOOD AND BEVERAGE ASSOCIATE was called: 05:51 FOOD AND BEVERAGE ASSOCIATE Responder Arrival Time:: 05:52 FOOD AND BEVERAGE ASSOCIATE Location:: 3T Med/Oncology FOOD AND BEVERAGE ASSOCIATE Reason for Call: O2 Saturation below 90% FOOD AND BEVERAGE ASSOCIATE Called By: RN - IV IV Inserted during FOOD AND BEVERAGE ASSOCIATE?: No - Respiratory FOOD AND BEVERAGE ASSOCIATE Delivery Method: Intubated (initial attempt failed due to need for suction. Dentures removed.) - Diagnostic Test Ordered CT Scan: No (CT scan done about an hour before code called) - Stat Labs Ordered FOOD AND BEVERAGE ASSOCIATE Stat Labs Ordered: CBC, BMP, LACTIC ACID CPR started during FOOD AND BEVERAGE ASSOCIATE?: Yes - Vital Signs Vital Signs: 76/55, o2 sat 68%, HR 152, increased to 190bpm at sinus tachycardia - Geovanna Coma Scale Coma Scale Motor: Movement to pain stimulus - Recommendations 5) FOOD AND BEVERAGE ASSOCIATE Level of Care Recommendations: Transfer to ICU I.Reason for FOOD AND BEVERAGE ASSOCIATE - A) Acute Change in Patient: (Select all that apply): Acute change in SpO2 less - Neurological Status (Select all that apply): Lethargic - Respiratory Oxygen Delivery Method: Intubated - Constitutional Appears: absent: Well Additional Comments: unarousable - Head Head Exam: ATRAUMATIC, NORMAL INSPECTION, NORMOCEPHALIC - Respiratory Exam Respiratory Exam: Respiratory Distress - Cardiovascular Exam Cardiovascular Exam: Tachycardia - Neurological Exam Neurological Exam: absent: Alert, Awake Plan - Assessment of Findings&Treatment Plan 78 y/o female admitted for hypercalcemia and low back pain has had increasing SOB morning of 09/29. Earlier respiratory therapist was present due to oxygen desaturation <90 despite NC, and venti mask. Shortly after rapid response called, [facility] The patient coded at 5:51 Am, patient was intubated after second attempt. ACLS was initiated. Two central femoral lines were inserted. Despite our efforts the patient at 7:22AM worker's compensation claims examiner was notified. Family was called. Attending Physician notified. <Dennis Mata - Last Filed: 09/30/18 07:49> FOOD AND BEVERAGE ASSOCIATE Nurses Assessment - Vital Signs Vital Signs: Rapid Response Vital Sign Blood Pressure 76/55 Pulse Rate 152 Oxygen Saturation 68 Attending/Attestation - Attestation I have personally seen and examined this patient.: Yes I have fully participated in the care of the patient.: Yes I have reviewed all pertinent clinical information, including history, physical exam and plan: Yes Notes (Text): 09/30/18 07:46 Patient was seen and examine with resident . Faith Code was originally run on the medical floor but after return of circulation, she was transferred to the ICU. Shortly once there another Chip Galileo was called and this was run in conjunction with ICU physician Dr. Olesya Mata. Upon pronouncement of , patient's son was contacted via phone and notified. Patient's primary attending Dr. Hardeep Fisher was also notified via phone. EDRS certificate was completed with resident and assigned to Dr. Hardeep Fisher. Dennis Mata D.O.
[2018-09-29] MEDS ORDERED: EPINEPHrine- 1 MG in Sodium Chloride 0.9% 250 ML IV PRN ×2 (06:48→06:52)
--- NOTE | 2018-09-29 07:24 | CP.PCM.PN ---
Subjective - Date & Time of Evaluation Date of Evaluation: 09/28/18 Time of Evaluation: 18:00 - Subjective Subjective: Patient reportedly feeling well; urinating well; tolerating diet; Objective - Vital Signs/Intake and Output Vital Signs (last 24 hours): Temp Pulse Resp BP Pulse Ox 97.7 F 88 20 131/72 94 L 09/29/18 00:00 09/29/18 00:00 09/29/18 00:00 09/29/18 00:00 09/29/18 00:00 Intake and Output: 09/29/18 09/29/18 06:59 18:59 Intake Total 850 Balance 850 - Medications Medications: Current Medications Acetaminophen (Tylenol 325mg Tab) 650 mg PO Q6 PRN PRN Reason: Fever >100.4 F Last Admin: 09/28/18 18:33 Dose: 650 mg Acetaminophen (Tylenol 325mg Tab) 650 mg PO Q6 PRN PRN Reason: Pain, moderate (4-7) Last Admin: 09/27/18 23:13 Dose: 650 mg Dextrose (Dextrose 50% Inj) 0 ml IV STAT PRN; Protocol PRN Reason: Hypoglycemia Protocol Dextrose (Glutose 15) 0 gm PO ONCE PRN; Protocol PRN Reason: Hypoglycemia Protocol Diltiazem HCl (Cardizem Cd) 120 mg PO DAILY [facility] Last Admin: 09/28/18 10:43 Dose: 120 mg Enoxaparin Sodium (Lovenox) 40 mg SC DAILY [facility] Last Admin: 09/28/18 11:04 Dose: 40 mg Famotidine (Pepcid) 20 mg PO BID [facility] Last Admin: 09/28/18 17:32 Dose: 20 mg Glucagon (Glucagen Diagnostic Kit) 0 mg IM STAT PRN; Protocol PRN Reason: Hypoglycemia Protocol Piperacillin Sod/Tazobactam Sod (Zosyn 3.375 Gm Iv Premix) 3.375 gm in 50 mls @ 100 mls/hr IVPB Q6H SHANTA; Protocol Last Admin: 09/29/18 01:47 Dose: 100 mls/hr Dextrose (Dextrose 5% In Water 1000 Ml) 1,000 mls @ 0 mls/hr IV .Q0M PRN; Protocol PRN Reason: Hypoglycemia Protocol Norepinephrine Bitartrate 8 mg (/ Sodium Chloride) 258 mls @ 15.48 mls/hr IV .[id number] PRN; Protocol PRN Reason: TITRATE PER MD ORDER Vasopressin 40 units/ Sodium (Chloride) 42 mls @ 1.58 mls/hr IV .Q24H SHANTA; Protocol Epinephrine HCl 1 mg/ Sodium (Chloride) 251 mls @ 15.06 mls/hr IV .[id number] PRN; Protocol PRN Reason: TITRATE PER MD ORDER Epinephrine HCl 1 mg/ Sodium (Chloride) 251 mls @ 15.06 mls/hr IV .[id number] PRN; Protocol PRN Reason: TITRATE PER MD ORDER Stop: 09/29/18 23:59 Insulin Detemir (Levemir) 25 unit SC [facility] Last Admin: 09/28/18 21:38 Dose: 25 unit Insulin Human Regular (Novolin R) 0 unit SC [facility]; Protocol Last Admin: 09/28/18 21:42 Dose: Not Given Lisinopril (Zestril) 40 mg PO DAILY [facility] Last Admin: 09/28/18 10:44 Dose: 40 mg Metformin HCl (Glucophage) 500 mg PO BID [facility] Last Admin: 09/27/18 09:48 Dose: 500 mg Metoclopramide HCl (Reglan) 10 mg IVP [facility] Last Admin: 09/28/18 21:41 Dose: 10 mg Multivitamins (Hexavitamin) 1 tab PO DAILY [facility] Last Admin: 09/28/18 10:44 Dose: 1 tab Ondansetron HCl (Zofran Inj) 4 mg IVP Q8H PRN PRN Reason: Nausea/Vomiting Pantoprazole Sodium (Protonix Inj) 40 mg IVP DAILY [facility] Last Admin: 09/28/18 10:45 Dose: 40 mg Rosuvastatin Calcium (Crestor) 40 mg PO [facility] Last Admin: 09/28/18 21:37 Dose: 40 mg - Labs Labs: 09/29/18 06:19 09/29/18 06:19 - Constitutional Appears: Non-toxic, No Acute Distress - Eye Exam Eye Exam: Normal appearance - Respiratory Exam Respiratory Exam: Clear to Ausculation Bilateral. absent: Respiratory Distress - Cardiovascular Exam Cardiovascular Exam: RRR, +S1, +S2 - GI/Abdominal Exam GI & Abdominal Exam: Soft. absent: Distended, Tenderness - Extremities Exam Additional comments: no leg edema - Neurological Exam Neurological Exam: Alert, Awake - Psychiatric Exam Psychiatric exam: Normal Mood. absent: Agitated - Skin Skin Exam: Warm. absent: Cyanosis Assessment and Plan (1) Hypercalcemia Assessment & Plan: Relatively mild, PTH appopriately suppressed; awaiting results of PTHrP and paraproteinemia workup; awaiting CT chest w/contrast to assess for lymphade nopathy; -will continue IVF until contrast CT done (mild increase in serum creatinine); Status: Acute (2) HTN (hypertension) Assessment & Plan: BP controlled, continue current meds; Status: Chronic (3) SANTO (acute kidney injury) Assessment & Plan: Mild increase in serum creatinine, unclear if this is just some hemodynamic fluctuation/pre-renal cause; continue IVF for now; Status: Acute
--- NOTE | 2018-09-29 07:27 | PCM.PROC ---
Procedures Attestation:: I certify that I have explained the specified Operation(s) or Procedure(s), risks, benefits and reasonable alternatives to the Patient and/or other person responsible. The opportunity was given to ask questions and all questions answered - Arterial Line Left Femoral Aseptic technique was employed throughout the procedure: Full sterile barriers (mask, hair cover, sterile gown, sterile gloves), Chloraprep Antiseptic: 30 second prep for IJ or SC sites Time Out Performed: Yes Pt. placed on Pulse Ox Monitor: Yes Ultrasound Used for Placement: No Gauge (Size): 20 gauge Technique Used: Guide Wire Technique Secured by: Securement device Post procedure dressing: Gauze, Clear vapor permeable, Chlorhexidine disc (Biopatch) Patient Tolerated Procedure: well Immediate Complications: none - Central Line Placement Left Femoral Triple Lumen Catheter Aseptic technique was employed throughout the procedure: Full sterile barriers (mask, hair cover, sterile gown, sterile gloves), Chloraprep Antiseptic: 2 minute prep for Femoral CVP Time Out Performed: Yes Pt. Placed on Pulse Ox Monitor: Yes Central Line Prep: Chlorhexidine-Alcohol Combination Local Anesthesia Used: Lidocaine 1% Amount of Anesthesia Used (mls): 5 Ultrasound Used for Placement: No Central Line Lumen Inserted: triple Central Line Length: 20 cm Post Procedure: Sutured in Place, Good Blood Return, All Ports Aspirated, Flushed, Capped, Sterile Dressing Applied Secured by: Securement device Post procedure dressing: Gauze, Clear vapor permeable, Chlorhexidine disc (Biopatch) Post Procedure X-Ray: No Patient Tolerated Procedure: Well Immediate Complications: None
--- NOTE | 2018-09-29 07:36 | CP.PCM.PRO ---
Pronouncement of Note - Clinical Findings Physical Exam: No Response Verbal/Painful Stimuli, Absent Peripheral Puls es{Carotid & Femoral}, Absent Heart & Breath Sounds, No Pupillary Light Reflex, No Corneal Reflex, Pupils Fixed & Dilated, Absence of Vital Signs - Pronouncement Time Time of Pronouncement of : 07:22 - Notifications Pronouncement Notifications: Family Notified, Atending Notified Pharmacovigilance Safety Expert Notified: Yes - Autopsy Autopsy Requested: No - [place] [id number]
--- NOTE | 2018-09-29 11:26 | CT ---
CT chest HISTORY: Shortness of breath. Lymphadenopathy. Comparison: X-ray dated 09/26/2018 Technique: Multiple contiguous axial images were through the chest with the use of intravenous contrast. Subsequently, sagittal images were obtained. This CT exam was performed using one or more of the following dose reduction techniques: Automated exposure control, adjustment of the mA and/or kV according to patient size, and/or use of iterative reconstruction technique. Findings: Moderate bilateral multifocal pulmonary vascular congestion which may be related to edema secondary to congestive heart failure. Superimposed multifocal areas of patchy airspace consolidative opacities throughout both lungs which may represent multifocal airspace disease versus multifocal congestion versus superimposed infiltrate/pneumonia. Post treatment interval follow-up is recommended to ensure resolution and exclude residual lesion. Small bilateral pleural effusions with passive atelectasis at the lung bases. Central pulmonary venous congestion. Central pulmonary arteries appear grossly preserved. Visualized aorta is grossly preserved. Atherosclerotic calcification and plaque noted within the aorta. Moderately enlarged heart. Prominent mediastinal and hilar lymph nodes measuring up to 1.8 centimeters. Right hilar lymph node measures 1.8 centimeters. Precarinal lymph node measures 1.7 centimeters. Moderate sliding hiatal hernia. 7 millimeter left thyroid nodule. 4 millimeter right thyroid nodule. Correlation with thyroid ultrasound may be helpful if clinically indicated. Prominent liver. 1 centimeter left adrenal nodule demonstrating a Hounsfield unit attenuation of 65, indeterminate. Correlation with multiphasic CT or MR may be helpful for further evaluation if clinically indicated. Impression: 1. Moderate bilateral multifocal pulmonary vascular congestion which may be related to edema secondary to congestive heart failure. 2. Superimposed multifocal areas of patchy airspace consolidative opacities throughout both lungs which may represent multifocal airspace disease versus multifocal congestion versus superimposed infiltrate/pneumonia. Post treatment interval follow-up is recommended to ensure resolution and exclude residual lesion. 3. Small bilateral pleural effusions with passive atelectasis at the lung bases. 4. Central pulmonary venous congestion. 5. Moderately enlarged heart. 6. Prominent mediastinal and hilar lymph nodes measuring up to 1.6 centimeters. 7. Moderate sliding hiatal hernia. 8. 7 millimeter left thyroid nodule. 4 millimeter right thyroid nodule. Correlation with thyroid ultrasound may be helpful if clinically indicated. 9.1 centimeter left adrenal nodule demonstrating a Hounsfield unit attenuation of 65, indeterminate. Correlation with multiphasic CT or MR may be helpful for further evaluation if clinically indicated. A preliminary report was submitted at 5:21 a.m. on 09/29/[address] Elver Nance from [facility].
--- NOTE | 2018-09-29 22:26 | CP.PCM.DIS ---
Provider - Provider Date of Admission: 09/25/18 20:58 Attending physician: Ramsey Fisher MD Hospital Course - Lab Results Lab Results: Micro Results 09/26/18 14:35 Blood-Venous Blood Culture - Preliminary NO GROWTH AFTER 3 DAYS 09/26/18 14:00 Blood-Venous Blood Culture - Preliminary NO GROWTH AFTER 3 DAYS 09/26/18 14:32 Urine,Clean Catch Urine Culture - Final 10-50,000 CFU/ML. MULTIPLE SPECIES. PROBABLE CONTAMINATION. Most Recent Lab Values WBC 14.6 K/uL (4.8-10.8) H D 09/29/18 06:19 RBC 4.30 Mil/uL (3.80-5.20) 09/29/18 06:19 Hgb 12.7 g/dL (11.0-16.0) D 09/29/18 06:19 Hct 39.3 % (34.0-47.0) 09/29/18 06:19 MCV 91.5 fL (81.0-99.0) 09/29/18 06:19 MCH 29.6 pg (27.0-31.0) 09/29/18 06:19 MCHC 32.3 g/dL (33.0-37.0) L 09/29/18 06:19 RDW 14.7 % (11.5-14.5) H 09/29/18 06:19 Plt Count 465 K/uL (130-400) H D 09/29/18 06:19 MPV 6.6 fL (7.2-11.7) L 09/29/18 06:19 Neut % (Auto) 49.5 % (50.0-75.0) L 09/29/18 06:19 Lymph % (Auto) 43.5 % (20.0-40.0) H 09/29/18 06:19 Phelps % (Auto) 6.2 % (0.0-10.0) 09/29/18 06:19 Eos % (Auto) 0.4 % (0.0-4.0) 09/29/18 06:19 Baso % (Auto) 0.4 % (0.0-2.0) 09/29/18 06:19 Neut # (Auto) 7.2 K/uL (1.8-7.0) H 09/29/18 06:19 Lymph # (Auto) 6.3 K/uL (1.0-4.3) H 09/29/18 06:19 Phelps # (Auto) 0.9 K/uL (0.0-0.8) H 09/29/18 06:19 Eos # (Auto) 0.1 K/uL (0.0-0.7) 09/29/18 06:19 Baso # (Auto) 0.1 K/uL (0.0-0.2) 09/29/18 06:19 Puncture Site Rt femoral 09/29/18 06:35 pCO2 51 mm/Hg (35-45) H 09/29/18 06:35 pO2 76 mm/Hg (80-100) L 09/29/18 06:35 HCO3 8.9 mmol/L (21-28) L* 09/29/18 06:35 ABG pH 6.97 (7.35-7.45) L* 09/29/18 06:35 ABG Total CO2 13.3 mmol/L (22-28) L 09/29/18 06:35 ABG O2 Saturation 87.2 % (95-98) L 09/29/18 06:35 ABG Base Excess -20.1 mmol/L (-2.0-3.0) L 09/29/18 06:35 Juanito Test Na 09/29/18 06:35 ABG Potassium 3.6 mmol/L (3.6-5.2) 09/29/18 06:35 A-a O2 Difference 573.0 mm/Hg 09/29/18 06:35 Respiratory Index 7.5 09/29/18 06:35 Sodium 142.0 mmol/l (132-148) 09/29/18 06:35 Chloride 100.0 mmol/L (98-107) 09/29/18 06:35 Glucose 261 mg/dl (65-105) H 09/29/18 06:35 Lactate 17.0 mmol/L (0.7-2.1) H* 09/29/18 06:35 Vent Mode Prvc 09/29/18 06:35 Mechanical Rate 16 09/29/18 06:35 FiO2 100.0 % 09/29/18 06:35 Tidal Volume 500 09/29/18 06:35 PEEP 5 09/29/18 06:35 Crit Value Called To Dr esposito 09/29/18 06:35 Crit Value Called By Austin lawrence/rt 09/29/18 06:35 Crit Value Read Back Y 09/29/18 06:35 Blood Gas Notified Time 645 09/29/18 06:35 Sodium 138 mmol/L (132-148) 09/29/18 06:19 Potassium 3.4 mmol/L (3.6-5.2) L 09/29/18 06:19 Chloride 101 mmol/L (98-107) 09/29/18 06:19 Carbon Dioxide 20 mmol/L (22-30) L 09/29/18 06:19 Anion Gap 22 (10-20) H 09/29/18 06:19 BUN 11 mg/dL (7-17) 09/29/18 06:19 Creatinine 1.0 mg/dL (0.7-1.2) 09/29/18 06:19 Est GFR ( Amer) > 60 09/29/18 06:19 Est GFR (Non-Af Amer) 54 09/29/18 06:19 POC Glucose (mg/dL) 167 mg/dL (65-110) H 09/29/18 06:19 Random Glucose 164 mg/dL (65-105) H 09/29/18 06:19 Calcium 10.5 mg/dl (8.6-10.4) H 09/29/18 06:19 Phosphorus 4.5 mg/dL (2.5-4.5) 09/29/18 06:19 Magnesium 2.3 mg/dL (1.6-2.3) 09/29/18 06:19 Ferritin 1070.0 ng/mL 09/29/18 06:19 Total Bilirubin 0.3 mg/dL (0.2-1.3) 09/29/18 06:19 AST 57 U/L (14-36) H D 09/29/18 06:19 ALT 19 U/L (9-52) 09/29/18 06:19 Alkaline Phosphatase 195 U/L (38-126) H D 09/29/18 06:19 Total Protein 8.1 g/dL (6.3-8.3) 09/29/18 06:19 Total Protein (PEP) 6.5 g/dL (6.1-8.1) 09/25/18 21:28 Albumin 4.0 g/dL (3.5-5.0) 09/29/18 06:19 Albumin (PEP) 2.9 g/dL (3.8-4.8) L 09/25/18 21:28 Globulin 4.1 gm/dL (2.2-3.9) H 09/29/18 06:19 Albumin/Globulin Ratio 1.0 (1.0-2.1) 09/29/18 06:19 Ryfzh-4-Xmfyrbcqc 0.5 g/dL (0.2-0.3) H 09/25/18 21:28 Gbfnj-8-Mqocemoht 1.5 g/dL (0.5-0.9) H 09/25/18 21:28 Lzno-1-Xkyniupu 0.3 g/dL (0.4-0.6) L 09/25/18 21:28 Jsxm-1-Lkxtpces 0.3 g/dL (0.2-0.5) 09/25/18 21:28 Gamma Globulins 0.9 g/dL (0.8-1.7) 09/25/18 21:28 Abnorm Protein Band 1 TEST NOT PERFORMED 09/25/18 21:28 Abnorm Protein Band 2 TEST NOT PERFORMED 09/25/18 21:28 Abnorm Protein Band 3 TEST NOT PERFORMED 09/25/18 21:28 25-OH Vitamin D Total 54.1 NG/ML (30.0-100.0) 09/27/18 06:18 Calcium (PTH Intact) 9.9 mg/dL (8.6-10.4) 09/25/18 21:28 PTH w/Ion &Tot Calcium 6 pg/mL (14-64) L 09/25/18 21:28 Arterial Blood Potassium 3.6 mmol/L (3.6-5.2) 09/29/18 06:35 Urine Color Yellow (YELLOW) 09/25/18 19:39 Urine Clarity Clear (Clear) 09/25/18 19:39 Urine pH 7.0 (5.0-8.0) 09/25/18 19:39 Ur Specific [place] 1.008 (1.003-1.030) 09/25/18 19:39 Urine Protein Negative mg/dL (NEGATIVE) 09/25/18 19:39 Urine Glucose (UA) 1+ mg/dL (Normal) 09/25/18 19:39 Urine Ketones Negative mg/dL (NEGATIVE) 09/25/18 19:39 Urine Blood Negative (NEGATIVE) 09/25/18 19:39 Urine Nitrate Negative (NEGATIVE) 09/25/18 19:39 Urine Bilirubin Negative (NEGATIVE) 09/25/18 19:39 Urine Urobilinogen Normal mg/dL (0.2-1.0) 09/25/18 19:39 Ur Leukocyte Esterase 1+ Terrell/uL (Negative) H 09/25/18 19:39 Urine WBC (Auto) 10 /hpf (0-5) H 09/25/18 19:39 Urine RBC (Auto) 1 /hpf (0-3) 09/25/18 19:39 Ur Squamous Epith Cells 1 /hpf (0-5) 09/25/18 19:39 Urine Bacteria Occ (<OCC) H 09/25/18 19:39 Ur Random Sodium 49 mmol/L 09/25/18 21:28 Urine Chloride 54 mmol/L (32-290) 09/25/18 21:28 Urine Calcium 12.3 mg/dL 09/25/18 21:28 Stool Occult Blood Negative (NEGATIVE) 09/28/18 21:30 HOLLY & SPEP Interp See note 09/25/18 21:28 Hepatitis A IgM Ab Negative (NEGATIVE) 09/27/18 06:18 Hep Bs Antigen Negative (NEGATIVE) 09/27/18 06:18 Hep B Core IgM Ab Negative (NEGATIVE) 09/27/18 06:18 Hepatitis C Antibody Negative (NEGATIVE) 09/27/18 06:18 HIV 1&2 Antibody Screen Negative (NEGATIVE) 09/26/18 17:26 Discharge Exam - Head Exam Head Exam: ATRAUMATIC, NORMAL INSPECTION, NORMOCEPHALIC Discharge Plan - Follow Up Plan Condition: STABLE Disposition: WITH WITHOUT AUTOPSY
[2018-09-30 01:02] LABS: FREE KAPPA SERUM 28.8 mg/L (3.3-19.4)
--- NOTE | 2018-09-30 08:04 | DS ---
DISCHARGE DIAGNOSES: Sudden cardiac , hypercalcemia, hypertension, diabetes, lymphadenopathy. This is a 78-year-old [place] female with history of lymphadenopathy, workup in the past has been inconclusive. She has being followed up by Hematology/Oncology in [place]. She also had history of hypertension, hyperlipidemia, in her usual status of health. She is ambulatory and independent in activities of daily living. She was admitted because of high calcium, and she was in the process of getting hematological evaluation and lymph node biopsy. While process are underway, the patient last night developed dyspnea and later on cardiac arrest. The patient . I spoke to the patient's daughter cardiac event where the patient had a GA. WBC 14.6, hemoglobin 12.3, hematocrit 39.3, platelets 465. Sodium 138, potassium 3.4, chloride 101, bicarbonate 20, BUN 11, creatinine 1. Glucose 160. The patient's family aware of her condition. Ramsey Fisher MD
== END 2018-09-29 07:22 | DRG 815 ==
LOC: C.ER 18:30 → C.3T 20:58 → C.9I 09-29 07:17
PROVIDERS: ADMIT Internal Medicine; ATTEND Internal Medicine
PROC: 06HY33Z Insertion of Infusion Device into Lower Vein, Percutaneous Approach (ICD-10-PCS; principal; 2018-09-29)
DX: R59.1 Generalized enlarged lymph nodes (principal); N17.9 Acute kidney failure, unspecified; E83.52 Hypercalcemia; E78.5 Hyperlipidemia, unspecified; E83.51 Hypocalcemia; H91.90 Unspecified hearing loss, unspecified ear; I10 Essential (primary) hypertension; I46.9 Cardiac arrest, cause unspecified; E11.9 Type 2 diabetes mellitus without complications